=== PATIENT | male | born 1940 | race Caucasian/White ===

== ENCOUNTER → 2016-08-08 | Outpatient (CLI) | payer MEDICARE, BC ==
[~2016-08-08] MED LIST: ADVAIR 250-501 EACH INH; ALPHAGAN 05 ML/1 BOT OPHTH; ASPIRIN EC81 MG PO; BROVANA15 MCG/2 M NS; CARVEDILOL25 MG PO; COLACE100 MG PO; DUONEB INH; FLOMAX0.4 MG PO; FLORASTOR250 MG PO; LEVAQUIN500 MG PO; LIPITOR80 MG PO; NITROSTAT0.4 MG SL; NORCO 5-325 TA1 EACH PO; TAB-A-VITE1 EACH PO; VANCO 1.751.75 GM/25 IV; VANCOMYCIN HCL1 GM IV; XALATAN2.5 ML OPHTH; ZESTRIL40 MG PO
[2016-08-08 15:34] LABS: ESTIMATED GFR (MDRD EQUATION) > 60
== END | disposition disaster alternative care site (69) ==
LOC: LNHI 14:53
PROVIDERS: Surgery Vascular Surgery
DX: I70.219 Atherosclerosis of native arteries of extremities with intermittent claudication, unspecified extremity (principal)

== ENCOUNTER 2016-08-16 07:39 | Outpatient (CLI) | payer MEDICARE, BC ==
[~2016-08-16] VITALS: Ht 172.7 cm; Wt 97.0 kg
--- NOTE | ~2016-08-16 | OR ---
PATIENT'S NAME: NATO CAMARA [facility] AGE: 75 Y [address] ROOM: [place] [address] LOCATION: GPCU ADMIT DATE: 08/16/2016 OR/Procedure Report DISCHARGE DATE: FAMILY PHYSICIAN: Kuldip Pradhan MD ATTENDING PHYSICIAN: MAREK DE LEÓN SURGEON: Marek De León MD COLLECTIONS CURATOR: DATE OF PROCEDURE: 08/16/2016 PREOPERATIVE DIAGNOSIS: Critical limb ischemia of the left lower extremity. POSTOPERATIVE DIAGNOSIS: Critical limb ischemia of the left lower extremity. PROCEDURES PERFORMED: 1. Aortogram. 2. Left lower extremity angiogram. 3. Left common and external iliac stenting with 7 x 57 and a 7 x 37 iliac stent, balloon expandable. FILING OR REGISTRY CLERK: Desire Michael MD. ANESTHESIA: MAC, local. ESTIMATED BLOOD LOSS: 25 mL. OPERATIVE FINDINGS: Recanalization of the left common external iliac, high- grade stenosis at the takeoff of the profunda occlusion of the SFA, and very minimal reconstitution in the distal leg. DESCRIPTION OF PROCEDURE: The patient was brought to Basting Machine Operator, placed supine on the agricultural labor camp manager table, and prepped and draped in a sterile manner. A preoperative time-out was performed. The patient received preoperative antibiotics. We gained access via the left groin. The patient had a femoral- popliteal bypass in the right groin. We used ultrasound guidance after infiltration of 1% lidocaine in the skin using a micropuncture needle followed by a micropuncture sheath. We exchanged using a Seldinger technique for a 5- Greek short sheath and ultimately a 6-Greek sheath to deploy the stents. We went up in the aorta using an 0.035 Glidewire as well as Omni Flush catheter. We performed the aortogram, which showed a high-grade stenosis of the common and the external iliacs. We then performed the angiogram through the sheath, showing that the SFA was completely occluded and the profunda was patent, but had a high-grade heavily calcified stenosis at the origin. The distal runoff was extremely poor with heavily calcified vessels. We gave 5000 units of heparin. We traversed the common and external iliac. We balloon angioplastied first by a 6 x 40 balloon, and then we deployed one 7 x 57 stent PATIENT'S NAME: [facility] AGE: 75 Y [address] ROOM: [place] [address] LOCATION: GPCU ADMIT DATE: 08/16/2016 OR/Procedure Report DISCHARGE DATE: FAMILY PHYSICIAN: Kuldip Pradhan MD ATTENDING PHYSICIAN: MAREK DE LEÓN and one 7 x 37 stent to relieve this high-grade stenoses in the iliacs. The patient will require a femoral endarterectomy to improve blood flow to his leg. He is not a candidate for bypass. Sheath was removed. Pressure was held. Protamine was used to reverse the heparin. DISPOSITION: The patient tolerated the procedure well, and was transferred to the Recovery Room and home later that day. MAREK DE LENÓ MD FKM/modl /[id number] d: 08/16/162054 t: 08/17/16 1630, OPERATIVE SUMMARY
== END 2016-08-16 17:30 | disposition disaster alternative care site (69) ==
LOC: GPCU 07:39 → GCAT 07:39 → GPOC 08:00 → GCAT 17:30
PROC: 047D34Z Dilation of Left Common Iliac Artery with Drug-eluting Intraluminal Device, Percutaneous Approach (ICD-10-PCS; principal; 2016-08-16)
PROC: B41G1ZZ Fluoroscopy of Left Lower Extremity Arteries using Low Osmolar Contrast (ICD-10-PCS; principal; 2016-08-16)
PROC: 047J34Z Dilation of Left External Iliac Artery with Drug-eluting Intraluminal Device, Percutaneous Approach (ICD-10-PCS; principal; 2016-08-16)
PROC: B4101ZZ Fluoroscopy of Abdominal Aorta using Low Osmolar Contrast (ICD-10-PCS; principal; 2016-08-16)
DX: I70.228 Atherosclerosis of native arteries of extremities with rest pain, other extremity (principal); Z95.1 Presence of aortocoronary bypass graft; E78.5 Hyperlipidemia, unspecified; I10 Essential (primary) hypertension; J44.9 Chronic obstructive pulmonary disease, unspecified; Z87.891 Personal history of nicotine dependence
CPT/HCPCS: C1725; C1769; C1876; C1887; J0360; J1644; J2001; J2250; J2720; J3010; J3370; J7030

== ENCOUNTER 2016-09-12 15:00 | Inpatient (IN) | payer MEDICARE, BC ==
[~2016-09-12] VITALS: Ht 172.7 cm; Wt 97.6 kg
--- NOTE | ~2016-09-12 | CON ---
PATIENT'S NAME: NATO REDMOND [facility] AGE: 75 Y [address] ROOM: [place] [address] LOCATION: GPCU ADMIT DATE: 09/15/2016 Consultation DISCHARGE DATE: FAMILY PHYSICIAN: Kuldip Pradhan MD ATTENDING PHYSICIAN: PATSY DE LEÓN REFERRING PHYSICIAN: Keith Clayton MD REFERRING PHYSICIAN: Dr. De León. REASON FOR CONSULT: Chest pain. HISTORY OF PRESENT ILLNESS: Mr. Redmond is a pleasant 75-year-old, white male, with long-standing history of peripheral arterial disease and coronary artery disease who was admitted to [facility] following left femoral endarterectomy attempt. Today morning, while eating breakfast, the patient developed severe substernal chest pain, about 8-9/10 in intensity. Pain was persistent for over an hour. The pain was relieved following GI cocktail and morphine injection. Presently, he is pain free. He denied any increase in shortness of breath. He has poor functional capacity and according to his , he does not walk much, as he is afraid that he might fall. Also has history of leg claudication with walking very short distances. He has past medical history of coronary artery disease and he had one-vessel coronary artery bypass graft several years ago and subsequently had PCI. REVIEW OF SYSTEMS: The patient denied any recent change in vision. No history of nausea, vomiting, diarrhea, or constipation. No history of fever. History of chest pain. History of, off and on shortness of breath is present. History of bilateral leg claudication. Review of other systems was essentially negative. PAST MEDICAL HISTORY: Coronary artery disease, peripheral vascular disease, history of hypertension, and renal artery stenosis status post renal artery stenting. The patient is also status post aortic valve replacement. History of cervical spinal stenosis, COPD, BPH, hyperlipidemia, CKD stage 3. MEDICATIONS: Current cardiac medications include: 1. Aspirin 81 mg daily. 2. Atorvastatin 80 mg daily. 3. Coreg 25 mg b.i.d. 4. Lisinopril 20 mg daily. 5. Nitroglycerin p.r.n. PATIENT'S NAME: NATO [facility]MON[facility] AGE: 75 Y [address] ROOM: [place] [address] LOCATION: GPCU ADMIT DATE: 09/15/2016 Consultation DISCHARGE DATE: FAMILY PHYSICIAN: Kuldip Pradhan MD ATTENDING PHYSICIAN: PATSY DE LEÓN FAMILY HISTORY: The patient stated both his parents had coronary artery disease. SOCIAL HISTORY: The patient is and lives with his in [place]. He quit smoking about 30 years ago. PHYSICAL EXAMINATION: GENERAL: He is awake, alert, and oriented. VITAL SIGNS: His pulse rate is 73 beats per minute, blood pressure 148/65, respiratory rate is 18. HEENT: His head is atraumatic and normocephalic. Oral mucosa is moist. NECK: No significant jugular venous distention is present. CARDIOVASCULAR: Scar britt from previous coronary artery bypass graft surgery is present. S1- S2 are audible. They are regular in rate and rhythm. Grade 2/6 ejection systolic murmur is audible in the left parasternal area. RESPIRATORY: Bilateral vesicular breath sounds are audible. ABDOMEN: Soft. Mild epigastric tenderness is present. Bowel sounds are present. EXTREMITIES: The patient has wound dressing on the left femoral area. Trace right lower extremity edema is present. NEUROLOGIC: The patient is awake, alert, and oriented. SKIN: Warm and dry. LABORATORY DATA: Sodium 137, potassium 4.8, chloride 101, CO2 31, glucose 132, calcium 7.8, BUN 10, creatinine 0.9. Troponin I is less than 0.04. CK-MB 9.4. CPK 953. White blood cell count 8.8, hemoglobin 14.3 on August 16, hematocrit 42.7, platelet count 201. His CBC results from today are pending. His EKG showed left bundle-branch block pattern. ASSESSMENT AND PLAN: 1. Chest pain. The patient had chest pain which lasted for over an hour and subsequently was subsided following GI cocktail and morphine. Presently, he is chest pain-free. His EKG showed left bundle-branch block, which is old according to the records. We will check serial cardiac isoenzymes and EKGs. We will monitor for recurrence of pain. Continue medical therapy for coronary artery disease with aspirin, beta-blockers, and statins. 2. Coronary artery disease, status post coronary artery bypass graft and percutaneous coronary intervention. We will continue medical therapy for coronary artery disease. 3. Hypertension, well controlled. Continue lisinopril and carvedilol. 4. Peripheral vascular disease, status post attempted surgery for left femoral stenosis, management per Vascular Surgery. PATIENT'S NAME: NATO REDMOND [facility] AGE: 75 Y [address] ROOM: [id number] [place] [id number] [facility] ADMIT DATE: 09/15/2016 Consultation DISCHARGE DATE: FAMILY PHYSICIAN: Kuldip Pradhan MD ATTENDING PHYSICIAN: PATSY DE LEÓN 5. Chronic obstructive pulmonary disease management per hospitalist. 6. The plan of care was discussed with the patient and the treating medical team. We will also obtain 2D echocardiogram to evaluate left ventricular function. Thank you for allowing us in taking part in the care of this pleasant patient. MD DAVID PEREZ/daniela /[id number] d: 09/16/16 1327 t: 09/23/16 1614, CONSULTATION REPORT
--- NOTE | ~2016-09-12 | OR ---
PATIENT'S NAME: NATO CAMARA [facility] AGE: 75 Y [address] ROOM: [address] [address] LOCATION: GPCU ADMIT DATE: 09/15/2016 OR/Procedure Report DISCHARGE DATE: FAMILY PHYSICIAN: Kuldip Pradhan MD ATTENDING PHYSICIAN: MAREK GALVAN SURGEON: Marek Galvan MD NET FRONT END DEVELOPER: DATE OF PROCEDURE: 09/15/2016 PREOPERATIVE DIAGNOSIS: Severe claudication of the left lower extremity caused by common femoral artery and high-grade stenosis. POSTOPERATIVE DIAGNOSIS: Severe claudication of the left lower extremity caused by common femoral artery and high-grade stenosis. PROCEDURE: Attempted left common femoral artery endarterectomy, which was only partially performed with repair of fractured artery. SHEAR GRINDER OPERATOR HELPER: JOSUE Hdz. ANESTHESIA: General. ESTIMATED BLOOD LOSS: 650 mL. OPERATIVE FINDINGS: Extremely dense scar tissue from previous surgery and heavily calcified artery which was extremely difficult to clamp, which ended up fracturing in the posterior wall, which required repair and abandonment of attempted endarterectomy. DESCRIPTION OF PROCEDURE: The patient was brought to the operating room, placed supine on the table, prepped and draped in a sterile manner. Preoperative time-out was performed. The patient received preoperative antibiotics. We made a standard incision in the left groin area in a vertical manner, dissected down the fascia, incised the fascia in a longitudinal manner, and dissected out the common femoral artery and the superficial femoral artery. The artery was surrounded with extremely dense hard scar tissue which made dissection extremely difficult. We were unable to completely dissect out the profunda artery due to this dense scar tissue. We gave 5000 units of heparin. We attempted to clamp proximally and distally the artery and then made an arteriotomy. There was heavy bleeding, and we attempted to remove some parts of the plaque; as we did so, we realized that the artery, most inferior and posterior wall, was completely fractured with plaque and was leaking blood posteriorly. We attempted to remove the clamp, but we were unable to do so without heavy bleeding. We then used 5-0 Prolene to repair our arteriotomy primarily and then we were able to then move the PATIENT'S NAME: NATO CAMARA [facility] AGE: 75 Y [address]: [address] [address] LOCATION: [facility] ADMIT DATE: 09/15/2016 OR/Procedure Report DISCHARGE DATE: FAMILY PHYSICIAN: Kuldip Pradhan MD ATTENDING PHYSICIAN: MAREK GALVAN clamp slightly more proximally and then used suction while the artery bled and then repaired the posterior wall with interrupted 6-0 Prolene stitches until we achieved hemostasis. We felt like we would have to get more proximally on the artery and when we attempted to do so, we were at a level of the inguinal ligament and the tissue in this area was extremely dense and extremely hard and we could not differentiate normal tissue. We attempted to dissect and every time we dissected, we would run into heavy bleeding. We made a decision at this point to not to attempt to get any more proximally and not to attempt to do anymore further endarterectomy. We reversed the heparin with protamine. Deep layers were closed with 2-0 and 3-0 Vicryl. Skin was closed with running 4-0 Monocryl, and Prevena patch was placed on top. The patient tolerated the procedure well and transferred to the recovery room and up to the floor. MAREK GALVAN MD FKM/modl /[id number] d: 09/16/16 0021 t: 09/19/16 1812, OPERATIVE SUMMARY
--- NOTE | ~2016-09-12 | ECHO ---
Transthoracic Echocardiography Report (TTE) Demographics Patient Name NATO CAMARA Date of Study 09/16/2016 Patient Number [id number] Visit Number [id number] Date of 1940 Room Number G6321 Gender Male Number Age 75 year(s) Referring Sarthak Jara MD Department Of Sociology Chair Yajaira Anderson [facility], Physician Chiquis Gallardo Physician Interpreting Chiquis Gallardo Yard Inspector Physician Supervising Ordering Chiquis Gallardo MD/RAINER Physician Nurse Stress Chiropract[facility] Conclusions Summary Technically difficult study with suboptimal images Moderate to severe concentric left ventricular hypertrophy. The estimated left ventricular ejection fraction is 55-60%. Septal wall motion abnormality consistent with post operative status. Diastolic assessment reveals Grade I diastolic dysfunction. The left atrium is mildly dilated. The interatrial septum appears aneurysmal. Bioprosthetic aortic valve with peak gradient across aortic valve of 46 mm hg and mean gradient of 25 mm hg. Trivial aortic insufficiency. Procedure Type of Study TTE procedure:2D Echocardiogram. Procedure Date Date: 09/16/2016 Start: 11:03 AM Study Location: Inpatient Portable Technical Quality: Poor visualization due to new item. Indications:Chest pain. Additional Indications:CAD HTN Appropriate Use Criteria: 9 Patient Status: Routine Rhythm: Within normal limits HR: 56 bpm BP: 122/57 mmHg Allergies - Penicillin. - Antibiotics:(Amoxicillin). M-Mode/2D Measurements LV Diastolic Dimension: 3.9 cm LV Systolic Dimension: 2.33 cm LV Septum Diastolic: 1.77 cm LV Septum Systolic: 2.73 cm LV PW Diastolic: 1.61 cm AO Root Dimension: 1.6 cm Cardiac Output: 6.3 l/min LA Dimension: 3.5 cm Post Pericard Effusion: 0.3 cm LVOT: 2.1 cm IVC Inspiration: 0.73 cm LVOT VTI: 32.5 cm RV Base: 2.89 cm LV Stroke volume: 112.51 ml RV Length: 5.91 cm TAPSE: 1.65 cm TDI-S': 10 cm/s Doppler Measurements AV Peak Velocity: 3.52 m/s MV Peak E-Wave: 0.85 m/s AV Peak Gradient: 49.56 mmHg MV Peak A-Wave: 0.95 m/s AV Mean Gradient: 22 mmHg MV E/A Ratio: 0.89 LVOT Peak Velocity: 1.16 m/s MV P1/2t: 91 msec TR Gradient:31.81 mmHg PV Peak Velocity: 1 m/s Estimated RAP:3 mmHg PV Peak Gradient: 4 mmHg Estimated RVSP: 35 mmHg Estimated PASP: 34.81 mmHg E' Septal Velocity: 0.06 m/s A' Septal Velocity: 0.09 m/s E' Lateral Velocity: 0.09 m/s A' Lateral Velocity: 0.1 m/s MV E/E' Ratio: 6.7 Findings Left Ventricle Moderate to severe concentric left ventricular hypertrophy. Diastolic assessment reveals Grade I diastolic dysfunction. Right Ventricle Right ventricular function appears mildly reduced. Left Atrium The left atrium is mildly dilated. The interatrial septum appears aneurysmal. Echodensity noted on interatrial septum possibly due to lipomatous hypertrophy of interatrial septum. Right Atrium Normal right atrial size. Mitral Valve Mild mitral annular calcification. Aortic Valve Bioprosthetic aortic valve with peak gradient across aortic valve of 46 mm hg and mean gradient of 25 mm hg. Trivial aortic insufficiency. Tricuspid Valve Trivial tricuspid regurgitation by color Doppler. Pulmonic Valve Pulmonic valve is not well seen. Miscellaneous Visualized portions of the aortic root and ascending aorta appear normal in size. Pleural Effusion No evidence of pleural effusion. Signature dtt: ROSY YIN dtd: 09/16/16 1103 Physician Self Edit
--- NOTE | ~2016-09-12 | CON ---
PATIENT'S NAME: NATO CAMARA [facility] AGE: 75 Y [address] ROOM: [place] [address] LOCATION: GPCU ADMIT DATE: 09/15/2016 Consultation DISCHARGE DATE: FAMILY PHYSICIAN: Kuldip Pradhan MD ATTENDING PHYSICIAN: PATSY DE LEÓN DATE OF CONSULTATION: 09/15/2016 REFERRING PHYSICIAN: Yesi El MD CHIEF COMPLAINT: Medical management in the setting of left femoral endarterectomy attempt. HISTORY OF PRESENTING ILLNESS: This 75-year-old white male, with a longstanding history of peripheral arterial disease, was admitted to [facility] today by Dr. De León for planned left femoral endarterectomy. Previously, he had undergone left femoral artery stenting with partial relief from claudication. He was not felt to be a candidate for femoral-popliteal bypass on the left side and, therefore, was recommended to proceed with left femoral endarterectomy. This was attempted earlier today, but unsuccessfully. The operative report is still pending. Postoperatively, he has returned to the floor and "feels okay." He does complain of a little bit of pain in the leg, but unchanged from previous. He had previously undergone femoral- popliteal bypass on the right with good results. He denies fever, chills, or sweats. He denies headache, dizziness, or lightheadedness. No chest pain, shortness of breath, or abdominal pain. He has been eating and drinking normally as of late. Denies changes in bowel or bladder habit. No numbness or tingling in his extremities or any other associated physical or constitutional complaints. He ambulates with the assistance of a walker. He typically can go 20 to 30 feet without assistance. He does experience claudication in the leg which improves with rest. PAST MEDICAL HISTORY: ALLERGIES: AMOXICILLIN. ILLNESSES: 1. Coronary artery disease, status post coronary artery bypass grafting. 2. Aortic valve replacement, bioprosthetic. 3. Essential hypertension. PATIENT'S NAME: NATO CAMARA [facility] AGE: 75 Y [address] ROOM: [place] [address] LOCATION: GPCU ADMIT DATE: 09/15/2016 Consultation DISCHARGE DATE: FAMILY PHYSICIAN: Kuldip Pradhan MD ATTENDING PHYSICIAN: PATSY DE LEÓN 4. Hyperlipidemia. 5. Peripheral arterial disease. 6. Chronic kidney disease, stage 3. 7. Renal artery stenosis. 8. Cervical spinal stenosis. 9. Chronic hypoxic and hypercapnic respiratory failure with COPD. 10. BPH, status post TURP. CURRENT MEDICATIONS: 1. Alphagan ophthalmic drops 0.1% applied topically t.i.d. p.r.n. 2. Aspirin 81 mg p.o. daily. 3. Atorvastatin 80 mg p.o. daily. 4. Coreg 25 mg p.o. b.i.d. 5. Latanoprost ophthalmic drops one drop each eye daily. 6. Lisinopril 20 mg p.o. daily. 7. Multivitamin daily. 8. Nitroglycerin p.r.n. FAMILY HISTORY: Significant for stroke in his mother. SOCIAL HISTORY: He is and lives in [place]. He is retired. He has a 30- to 40-pack- year history of smoking tobacco, but has been quit for 10 years. No significant alcohol use. REVIEW OF SYSTEMS: As per HPI. All other organ systems reviewed and are negative. PHYSICAL EXAMINATION: VITAL SIGNS: Temperature 97.9, pulse 80, respirations 16, and blood pressure 98/50. Weight is 96.2 kg. GENERAL: He is very pleasant, cooperative, lying in the bed, in no acute distress. He is a little hard of hearing. He is oriented x2 (not oriented to date). SKIN: Supple, pink, warm, and dry. There is some hyperpigmentation about the lower extremities bilaterally. No skin rashes. No areas of skin breach. No ulcerations. HEENT: Otherwise, normocephalic. Sclerae are nonicteric. Pupils equal, round, and reactive to light and accommodation. Extraocular movements appear intact. Nasal turbinates normal in appearance. Oropharynx clear. Mucous membranes are pink and moist. NECK: Supple, plethoric, and obese. No masses or adenopathy. No thyromegaly. No JVD. CHEST: Chest wall is symmetrical. PATIENT'S NAME: NATO CAMARA [facility] AGE: 75 Y [address] ROOM: [place] [address] LOCATION: GPCU ADMIT DATE: 09/15/2016 Consultation DISCHARGE DATE: FAMILY PHYSICIAN: Kuldip Pradhan MD ATTENDING PHYSICIAN: PATSY DE LEÓN HEART: Regular with occasional extrasystoles. There is a grade 1 to 2 out of 6 systolic ejection murmur. LUNGS: Diminished at the bases. No crackles or wheezes are heard. ABDOMEN: Soft and obese. Nontender. Bowel sounds present. No masses or hepatosplenomegaly. GENITOURINARY AND RECTAL: Not done. EXTREMITIES: No clubbing, cyanosis, or edema. NEUROLOGICAL: No focal deficits. LABORATORY AND X-RAY DATA: CBC showed a white blood cell count of 8.8, hemoglobin is 14.3, hematocrit 42.7, and platelets 201. Chemistries revealed a BUN and creatinine of 8 and 0.9 respectively, sodium and potassium of 136 and 4.4, chloride and CO2 are 100 and 31 respectively, calcium is 8.5. AST and ALT 15 and 18. Bilirubin 0.6. ASSESSMENT AND PLAN: 1. Coronary artery disease, clinically asymptomatic and stable. We will continue aspirin and statin therapy. He is also on beta billie therapy. Plan continued clinical followup. 2. Essential hypertension, appears to be adequately controlled. Continue LIU inhibitor therapy and monitor. 3. Peripheral arterial disease with failed attempt at left femoral endarterectomy. Symptoms appear stable. He is not experiencing rest claudication. We will defer definitive management to Dr. De León. Plan to continue with medical management. 4. Gait instability, chronic. Urge strict fall precautions. Ambulate only with a walker. He might benefit from some outpatient physical therapy. 5. Aortic valve replacement, bioprosthetic. Compensated, clinically stable. No changes. 6. Chronic hypoxic and hypercapnic respiratory failure. He is currently on a little oxygen, but this can probably be weaned off. He appears to be clinically stable. Encourage good pulmonary hygiene. 7. Renal artery stenosis. Renal function appears preserved. We will follow clinically. 8. Deep venous thrombosis prophylaxis. Encourage mobilization as he is physically able. Low-dose Lovenox per the venous thromboembolism protocol. YESI EL MD AJBritany/noemyl PATIENT'S NAME: NATO CAMARA [facility] AGE: 75 Y [address] ROOM: [place] [address] [facility] AD[facility] DATE: 09/15/2016 Consultation DISCHARGE DATE: FAMILY PHYSICIAN: Kuldip Pradhan MD ATTENDING PHYSICIAN: PATSY DE LEÓN /[id number] d: 09/15/16 1757 t: 09/16/16 0931, CONSULTATION REPORT
--- NOTE | ~2016-09-12 | DS ---
PATIENT'S NAME: NATO CAMARA [facility] AGE: 75 Y [address] ROOM: [id number] [place] [address] LOCATION: GPCU ADMIT DATE: 09/15/2016 Discharge Summary DISCHARGE DATE: 09/17/2016 FAMILY PHYSICIAN: Kuldip Pradhan MD ATTENDING PHYSICIAN: Marek De León FINAL DIAGNOSIS: Peripheral vascular disease with claudication. SECONDARY DIAGNOSES: 1. Chest pain. 2. Coronary artery disease. 3. Hypertension, controlled. 4. Chronic obstructive pulmonary disease. 5. Renal artery stenosis. 6. Urinary retention. PROCEDURE: Attempted left common femoral artery endarterectomy with primary repair of artery by Dr. De León. CONSULTATIONS: 1. Hospitalist for medical management. 2. Dr. Sim with Cardiology for chest pain. HOSPITAL COURSE: This is a 75-year-old male, admitted to [facility] on 09/15/2016 after attempted left common femoral artery endarterectomy. The patient with history of severe left lower extremity claudication caused by high grade stenosis to the left common femoral artery. See history and physical for full patient details. The patient was found to have dense scar tissue from previous surgery and heavily calcified artery which was difficult to clamp. There ended up being a fracture of the posterior wall of the artery which required repair and abandonment of attempted endarterectomy. There was an estimated 650 mL blood loss. The patient overall tolerated the procedure well and after recovery was admitted to progressive care unit for monitoring on telemetry, vitals, labs, surgical site, pain management, medication administration, and nursing assistance. The patient was placed on bedrest for 12 hours and his diet was advanced as tolerated. He was continued on Ancef x24 hours. The patient had no events on postop day 0. The morning of postop day #1, the patient had sharp substernal chest pain after eating breakfast, rating an 8/10. At that time, he denied any nausea, vomiting, shortness of breath, or radiation of pain. Cardiac enzymes were drawn and EKG obtained with old left bundle-branch block. The patient received sublingual nitroglycerin with no decrease in chest pain. His systolic blood pressures were elevated, 150s to 170s at that time. Hypertension decreased after nitroglycerin to systolic blood pressures of 130s. His chest pain did finally resolve after a dose of GI cocktail and PATIENT'S NAME: NATO CAMARA [facility] AGE: 75 Y [address] ROOM: [id number] [place], [place] [address] LOCATION: GPCU ADMIT DATE: 09/15/2016 Discharge Summary DISCHARGE DATE: 09/17/2016 FAMILY PHYSICIAN: Kuldip Pradhan MD ATTENDING PHYSICIAN: Marek De León. Cardiology was consulted due to the patient's history of coronary artery disease and history of CABG. Cardiology obtained a 2D echo and cardiac enzymes two sets were ordered every 4 hours. The patient had postoperative urinary retention requiring Trujillo catheter insertion, the patient with a known history of BPH. On postop day #1, his posterior tibialis and dorsalis pedis were present on Doppler. His Prevena VAC was intact to left groin with no surrounding erythema. On postop day #2, the patient's chest pain remained resolved. He was given a dose of Flomax x1, and Trujillo catheter was removed without difficulty and voiding well. His left groin pain was controlled and distal pulses remained present on Doppler. His troponin stayed less than 0.04 x3 sets. He had elevated CPK levels as expected due to recent surgery. Echo was reviewed by Cardiology. Cardiology recommended that the patient continue with medication therapy including aspirin, beta-billie, statin, and ARB. The patient is to follow up with Dr. Lemus as an outpatient. Hospitalist recommended that the patient followup with pulmonary function tests as an outpatient as well. From a Vascular, Cardiology, and Medical stand point, the patient was found in a stable condition to be discharged home. LABORATORY DATA: White blood cell count trending 8.8, 15.3, 10.4; hemoglobin 14.3, 12.0, 11.6. CPK 953, 893, 808. Troponin less than 0.04. DISCHARGE ORDERS: The patient is to be discharged to home on a cardiac diet. He is to avoid heavy lifting for 2 weeks. He is to follow up with Natividad Cedeno APRN in 2 weeks. He is to follow up with his primary care provider in 2-3 days for removal of Prevena VAC on left groin. He is also to have pulmonary function tests completed with his primary care provider. He is to report any signs or symptoms of infection at surgical incision including redness, swelling, fevers, chills, or drainage. DISCHARGE MEDICATIONS: 1. Lipitor 80 mg p.o. every night at bedtime. 2. Carvedilol 12.5 mg p.o. daily. 3. Xalatan drops, one drop ophthalmic every night at bedtime. 4. Lisinopril 20 mg p.o. daily. 5. Aspirin 81 mg p.o. daily. 6. Brimonidine tartrate one drop ophthalmic twice daily. 7. Multivitamin 1 tablet p.o. daily. 8. Nitroglycerin 0.5 mg sublingual every 5 minutes as needed for chest pain. 9. Plato 5/325 1 to 2 tabs every 4 hours as needed for pain. 10. Advair 250/50 Diskus one puff inhaled daily. 11. Brovana one ampule nasally twice daily as needed. DISPOSITION: The patient is to be discharged home in a stable condition. He is to follow discharge orders as prescribed. Education about discharge including incisional care, medications, prescriptions, diet, activity, and PATIENT'S NAME: NATO CAMARA [facility] AGE: 75 Y [address] ROOM: [place] [address] LOCATION: GPCU ADMIT DATE: 09/15/2016 Discharge Summary DISCHARGE DATE: 09/17/2016 FAMILY PHYSICIAN: Kuldip Pradhan MD ATTENDING PHYSICIAN: Marek De León followup appointments given to the patient. The patient verbalized understanding of the plan and had no further questions or concerns. He is to follow discharge orders as prescribed. NATIVIDAD CEDENO APRN FOR MAREK DE LEÓN MD TO/modl /[id number] d: 09/22/16 1746 t: 09/28/16 1007, DISCHARGE SUMMARY
[2016-09-15 06:38] LABS: BASOPHIL # 0.1 K/uL (0.0-0.2); BASOPHIL % 0.7 %; EOSINOPHIL # 0.2 K/uL (0.0-0.5); EOSINOPHIL % 2.6 %; HEMATOCRIT 42.7 % (37.0-53.0); HEMOGLOBIN 14.3 g/dL (11.0-16.0); IMMATURE GRANULOCYTE % 0.2 %; LYMPHOCYTE # 1.3 K/uL (0.8-4.0); LYMPHOCYTE % 14.9 %; MCH 32.1 pg (27.0-34.0); MCHC 33.5 gm/dL (32.0-36.5); MCV 95.7 fl (83.0-98.0); MONOCYTE % 11.1 %; MPV 9.4 fl (9.4-12.4); NEUTROPHIL # (ANC) 6.2 K/uL (1.4-9.0); NEUTROPHIL % 70.5 %; NRBC % 0 /100WBC (0-0.00); PLATELET COUNT 201 K/uL (150-450); RBC 4.46 M/uL (3.50-5.50); WBC 8.8 K/uL (4.0-11.0)
[2016-09-15 06:58] LABS: ALBUMIN 3.4 gm/dL (3.5-5.0); ANION GAP 9.4 (10.0-19.0); CALCIUM 8.5 mg/dL (8.5-10.5); CREATININE 0.9 mg/dL (0.6-1.3); POTASSIUM 4.4 mMol/L (3.7-5.1); TOTAL BILIRUBIN 0.6 mg/dL (0.0-1.5); TOTAL PROTEIN 7.3 g/dL (6.0-8.4)
[2016-09-15 13:17] LABS: ANION GAP 9.8 (10.0-19.0); CALCIUM 7.8 mg/dL (8.5-10.5); CREATININE 0.9 mg/dL (0.6-1.3); POTASSIUM 4.8 mMol/L (3.7-5.1)
--- NOTE | 2016-09-15 18:53 | NUR ---
Significant Event:Patient has wound vac to left groin, has been dry and intact. No c/o pain. Has been taking fluids and eating small amount of food. Hoping to go home tomorrow. Follow up:Home tomorrow
--- NOTE | 2016-09-15 18:55 | NUR ---
D:Patient recieved at 1135 per cart. Is alert and oreintated., Has IV fluids of NS infusing at 75 ml/hr. Wound vac to left groin is intact. Family with patient.Report recieved from Thais at 1110. P:Monitor post op
--- NOTE | 2016-09-16 04:56 | NUR ---
Significant Event: DENIES PAIN ALL NIGHT. HAVING DIFFICULTY EMPTYING HIS BLADDER. BLADDER SCANNED EARLY IN SHIFT AND HE HAD 708ML. HE TRIED TO SIT ON EDGE OF BED. HE WAS ABLE TO VOID 25 AND THEN ANOTHER 100ML. HE HAD NO URGE TO VOID. HE STATES HE USUALLY SITS ON THE TOILET. HE REFUSED TO GO INTO THE BR OR SIT ON THE COMMODE AFTER HIS BEDREST WAS UP. HE WAS AFRAID HE WOULD GO THROUGH ALL THE WORK TO NOT BE ABLE TO VOID. HE HAS REMAINED IN BED ALL NIGHT. HAS NOT SLEPT AT ALL. HE STATES AT HOME HE DRINKS 2 BEERS EVERYNIGHT TO HELP HIM SLEEP. NO OUTPUT FROM L) GROIN WOUND VAC. STILL INTACT. VSS. DECREASED HIM TO 1L PER NC. Follow up:
[2016-09-16 09:22] LABS: CPK 953 IU/L (35-332)
[2016-09-16 11:01] LABS: BASOPHIL % 0.1 %; HEMATOCRIT 36.3 % (37.0-53.0); IMMATURE GRANULOCYTE # 0.1 K/uL (0.0-0.3); IMMATURE GRANULOCYTE % 0.5 %; LYMPHOCYTE # 1.1 K/uL (0.8-4.0); LYMPHOCYTE % 6.9 %; MCH 32.3 pg (27.0-34.0); MCHC 33.1 gm/dL (32.0-36.5); MCV 97.8 fl (83.0-98.0); MONOCYTE # 1.4 K/uL (0.0-1.0); MPV 9.2 fl (9.4-12.4); NEUTROPHIL # (ANC) 12.7 K/uL (1.4-9.0); NEUTROPHIL % 83.5 %; NRBC % 0 /100WBC (0-0.00); PLATELET COUNT 171 K/uL (150-450); RBC 3.71 M/uL (3.50-5.50); RDW-CV 13.1 % (11.9-14.6); WBC 15.3 K/uL (4.0-11.0)
--- NOTE | 2016-09-16 11:50 | NUR ---
Introduced self and role of care management to patient. He lives in [place] with his . He states that he is able to do all his ADL's independently. He states that if he "needs help" his will help. He plans on returning home on discharge. I did ask if he would be needing home health to assist with the wound vac. He stated "no when I go home I will go to Dr Pradhan and he will remove it and throw it away". I did call and speak with Lanie ARROYO to make sure the would vac that was inplace was one of the disposable kinds but she could not tell me. He plans on returning home on discharge. He denies any needs at this time. Will continue to follow.
[2016-09-16 13:26] LABS: CPK 893 IU/L (35-332)
--- NOTE | 2016-09-16 15:17 | NUR ---
Significant Event: pt had chest pain midchest this am after breakfast. Trop.negative but cpk/mb are up.,ekg ok. Ntg sl no relief, morphine helped and gi cocktail. Wound vac intact. Pt had 700+ml on bladder scan, mota inserted, after pt voided 400mls clear yellow. Echo done. Pt needs to get sleep. Up to recliner once today tolerated ok. Pt here with him. SBP 170s this am, but back down 110s this afternoon. Pt not eat/drink much. Follow up:
[2016-09-16 17:13] LABS: CPK 808 IU/L (35-332)
--- NOTE | 2016-09-17 04:16 | NUR ---
Significant Event: PATIENT IS ALERT AND ORIENTED. VSS.NO COMPLAINTS OF CP OR DISCOMFORT. REMAINTS ON 1L O2 WHICH HE FAILED AT WEANING OFF OF LAST NIGHT. CARMICHAEL TO ELIAS. Follow up: PATIENT WISHES TO GO HOME TODAY.
[2016-09-17 04:57] LABS: BASOPHIL # 0.1 K/uL (0.0-0.2); BASOPHIL % 0.5 %; EOSINOPHIL # 0.1 K/uL (0.0-0.5); EOSINOPHIL % 1.3 %; HEMATOCRIT 34.9 % (37.0-53.0); HEMOGLOBIN 11.6 g/dL (11.0-16.0); IMMATURE GRANULOCYTE % 0.4 %; LYMPHOCYTE # 1.5 K/uL (0.8-4.0); LYMPHOCYTE % 14.5 %; MCH 32.3 pg (27.0-34.0); MCHC 33.2 gm/dL (32.0-36.5); MCV 97.2 fl (83.0-98.0); MONOCYTE # 1.1 K/uL (0.0-1.0); MONOCYTE % 10.8 %; MPV 9.3 fl (9.4-12.4); NEUTROPHIL # (ANC) 7.5 K/uL (1.4-9.0); NEUTROPHIL % 72.5 %; NRBC % 0 /100WBC (0-0.00); PLATELET COUNT 163 K/uL (150-450); RBC 3.59 M/uL (3.50-5.50); RDW-CV 13.1 % (11.9-14.6); WBC 10.4 K/uL (4.0-11.0)
[2016-09-17 05:09] LABS: ANION GAP 10.2 (10.0-19.0); CALCIUM 7.9 mg/dL (8.5-10.5); CREATININE 0.9 mg/dL (0.6-1.3); POTASSIUM 4.2 mMol/L (3.7-5.1)
[2016-09-17] MEDS ORDERED: ALPHAGAN 05 ML/1 BOT OPHTH (14:53)
[2016-09-17] MEDS ORDERED: ZESTRIL40 MG PO (14:53)
[2016-09-17] MEDS ORDERED: CARVEDILOL25 MG PO (14:53)
[2016-09-17] MEDS ORDERED: TAB-A-VITE1 EACH PO (14:53)
[2016-09-17] MEDS ORDERED: XALATAN2.5 ML OPHTH (14:53)
[2016-09-17] MEDS ORDERED: LIPITOR80 MG PO (14:53)
[2016-09-17] MEDS ORDERED: ASPIRIN EC81 MG PO (14:53)
--- NOTE | 2016-09-19 10:23 | NUR ---
I got a call on Monday the md wanting home health. I did talk with Vivi ARROYO with [facility] and they will touch base with pt on Monday. I did have [facility] u/s fax dc orders and meds and face to face. I then spoke with Katalina this am and faxed additional information. She is planning on calling pt to set up a time.
== END 2016-09-17 15:00 | disposition disaster alternative care site (69) | DRG 253 ==
LOC: GPCU 09-15 05:28
PROVIDERS: Family Medicine; Hospitalist; Internal Medicine Interventional Cardiology; Nurse Practitioner Family; ADMIT Surgery Vascular Surgery
PROC: 04UL0JZ Supplement Left Femoral Artery with Synthetic Substitute, Open Approach (ICD-10-PCS; principal; 2016-09-15)
PROC: 04CL0ZZ Extirpation of Matter from Left Femoral Artery, Open Approach (ICD-10-PCS; principal; 2016-09-15)
DX: I73.9 Peripheral vascular disease, unspecified (principal); J96.11 Chronic respiratory failure with hypoxia; J44.9 Chronic obstructive pulmonary disease, unspecified; E78.5 Hyperlipidemia, unspecified; I12.9 Hypertensive chronic kidney disease with stage 1 through stage 4 chronic kidney disease, or unspecified chronic kidney disease; N18.3 Chronic kidney disease, stage 3 (moderate); Z87.891 Personal history of nicotine dependence; I25.10 Atherosclerotic heart disease of native coronary artery without angina pectoris; I70.1 Atherosclerosis of renal artery; N40.0 Benign prostatic hyperplasia without lower urinary tract symptoms; Z86.79 Personal history of other diseases of the circulatory system; Z95.2 Presence of prosthetic heart valve
CPT/HCPCS: C2628; J0690; J1100; J1644; J1650; J2001; J2270; J2405; J2720; J7030

== ENCOUNTER 2016-10-09 10:14 | Inpatient (IN) | payer MEDICARE, BC ==
[~2016-10-09] VITALS: Ht 172.7 cm; Wt 98.0 kg
--- NOTE | ~2016-10-09 | CON ---
[facility] 75 Y [address] ROOM: [place] [address] LOCATION: GPCU ADMIT DATE: 10/09/2016 Consultation DISCHARGE DATE: FAMILY PHYSICIAN: Kuldip Pradhan MD ATTENDING PHYSICIAN: PATSY DE LEÓN DATE OF CONSULTATION: 10/12/2016 REFERRING PHYSICIAN: Felisha SCOTT MD REASON FOR CONSULTATION: Infection in the left groin postop. HISTORY: Mr. Redmond is a 75-year-old male, who was admitted with redness and swelling in his left groin. He had surgery with Dr. De León back on September 15 for severe claudication with an attempt at a left common femoral artery endarterectomy, but it was only partially performed with repair of a fractured artery. Here, he was felt to have an infected seroma, underwent I and D. There was some hematoma and this was copiously irrigated. I did speak with Dr. De León today and this vessel was exposed. The patient denies having any fevers, chills, sweats, nausea, vomiting, diarrhea. He is feeling better now. ID was asked to see and comment on antibiotics. PAST MEDICAL HISTORY: Significant for coronary disease peripheral vascular disease, hypertension, renal artery stenosis, ascending aortic valve replacement, COPD, BPH, cervical spine stenosis, hyperlipidemia, and chronic renal insufficiency. MEDICATIONS: Meds are noted. He is currently on vancomycin. ALLERGIES: TO PENICILLIN. HE SAYS HIS LIPS SWELLED UP. SOCIAL HISTORY: He is . Lives in [place]. Quit smoking 30 years ago. FAMILY HISTORY: Positive for coronary disease in both parents. REVIEW OF SYSTEMS: All remaining review of systems, otherwise, negative with pertinent positives and negatives in the HPI. PHYSICAL EXAMINATION: PATIENT'S NAME: NATO REDMOND [facility] AGE: 75 Y [address] ROOM: [place] [address] LOCATION: GPCU ADMIT DATE: 10/09/2016 Consultation DISCHARGE DATE: FAMILY PHYSICIAN: Kuldip Pradhan MD ATTENDING PHYSICIAN: PATSY DE LEÓN GENERAL: He is not in any acute distress. Awake, alert, and oriented, sitting up in a chair. HEENT: NC/AT. EOMI. PERRLA. NECK: Supple. LUNGS: Clear. HEART: Regular. ABDOMEN: Soft and nontender. EXTREMITIES: Without cyanosis, clubbing, or edema. His left groin has a VAC in place. There is very mild erythema across his left anterior thigh. VITAL SIGNS: His T-max is 98.4, blood pressure is 136/63, pulse 79, respirations 16. DATA: Cultures from the wound are growing Enterobacter aerogenes and Enterococcus faecalis. He also has cultures which showed an anaerobic gram-positive cocci. Sodium 136, potassium 4.1, chloride 102, bicarb 27, BUN 12, creatinine 1.2, glucose is 103. White count 9.5, hemoglobin 11.7, platelet count 221. ASSESSMENT AND PLAN: Left groin wound infection. Initially, I had not noted that the vessels were involved as the operative note did not explicitly state that. However, after discussion with Dr. De León, the vessels were exposed. Originally, I had thought about a shorter course given that it is just a subcutaneous infected seroma/hematoma. But given the depth down to vessel, we were going to be stuck treating him with probably 4 weeks of antibiotics. He has grown Enterococcus and Enterobacter. With the penicillin allergy, this limits our treatment options to some extent. He has taken cefazolin in the past, so could use a beta-lactam here. Otherwise, he can be on the Levaquin to cover the Enterobacter and then would need vancomycin for Enterococcus. The Enterococcus is sensitive to Levaquin, but this is not an ideal drug, especially if we are worried about treating a possible vascular infection. We will keep him on the vancomycin. We will do daily dosing given his age and aim for a trough around 15-18. He was on b.i.d. dosing post 3-dose level of 18 which is going to accumulate in him, so I think that is too much. Pharmacy can follow going forward and we will keep him on the Levaquin, however, could switch him over to Bactrim. However, with his chronic renal insufficiency, his risk of hyperkalemia would be significant, so may not be the best option here. If he gets into trouble with the Levaquin, could always try doing something like cefepime since he has tolerated cefazolin before. In any case, and he will get a PICC and 4 weeks of antibiotics. I did speak with Dr. De León and the [facility] team today. PATIENT'S NAME: NATO REDMOND [facility] AGE: 75 Y [address] ROOM: [place] [address] LOCATION: [facility] ADMIT DATE: 10/09/2016 Consultation DISCHARGE DATE: FAMILY PHYSICIAN: Kuldip Pradhan MD ATTENDING PHYSICIAN: PATSY DE LEÓN MD NI SILVEIRA/modl /[id number] d: 10/12/161940 t: 10/13/16 1046, CONSULTATION REPORT
--- NOTE | ~2016-10-09 | CON ---
PATIENT'S NAME: NATO CAMARA [facility] AGE: 75 Y [address] ROOM: [place] [address] LOCATION: GPCU ADMIT DATE: 10/09/2016 Consultation DISCHARGE DATE: FAMILY PHYSICIAN: Kuldip Pradhan MD ATTENDING PHYSICIAN: PATSY DE LEÓN DATE OF CONSULTATION: 10/09/2016 REFERRING PHYSICIAN: Felisha SCOTT MD CONSULTATION NOTE CHIEF COMPLAINT: Left groin cellulitis. HISTORY OF PRESENT ILLNESS: The patient is a 75-year-old gentleman with history of CAD status post CABG, aortic valve replacement with bioprosthetic, hypertension, and peripheral vascular disease, who presents here with left groin cellulitis. The patient has a history of peripheral vascular disease with multiple stents and recent attempt of left femoral endarterectomy with fracture of the posterior wall artery. The endarterectomy was postponed and fracture was repaired. The patient on discharge had wound VAC and was [facility]. He was recently started on clindamycin for cellulitis around surgical sites. However, the patient reports that his cellulitis is worsening with increasing erythema. Also including going all the way up to his abdominal wall. The patient was seen in the emergency department, was admitted under Dr. De León for possible surgical evaluation. The patient denies any fever, chills, shortness of breath, abdominal pain, nausea, vomiting, diarrhea, headache, or vision change. Of note, the patient also reports of numbness of his left foot. He reports that this has been going on in the past 24 hours. PAST MEDICAL HISTORY: 1. CAD status post CABG. 2. Aortic valve replacement with bioprosthetic. 3. Hypertension. 4. Obesity. 5. Possible COPD. PAST SURGICAL HISTORY: 1. Cervical surgery. 2. CABG. 3. Left attempted endarterectomy. [facility] 75 Y [address] ROOM: [address] [address] LOCATION: GPCU ADMIT DATE: 10/09/2016 Consultation DISCHARGE DATE: FAMILY PHYSICIAN: Kuldip Pradhan MD ATTENDING PHYSICIAN: PATSY DE LEÓN 4. Multiple lower extremity stents. FAMILY HISTORY: Both parents of old age. SOCIAL HISTORY: Reports he drinks 1 to 2 beers a day. Denies any withdrawal symptoms. Also reports he does not smoke but quit smoking 20 years ago. Lives with family. MEDICATIONS: Currently being reconciled. ALLERGIES: THE PATIENT REPORTS THAT HE HAS ALLERGY TO PENICILLIN WITH SWELLING OF THE ORAL CAVITY AND FACE. REVIEW OF SYSTEMS: All systems have been reviewed and are negative except what I mentioned in the HPI. PHYSICAL EXAMINATION: VITAL SIGNS: Stable. HEENT: Head; normocephalic and atraumatic. Eyes; extraocular muscles intact. Nose; no nasal discharge. Ears; no ear discharge. CHEST: Clear to auscultation bilaterally. HEART: Regular rate and rhythm. Second intercostal grade 1 systolic murmur. ABDOMEN: Soft, nontender, and nondistended. [employer]: The patient is alert and oriented x3. SKIN: The patient has erythema around his left groin extending close to his knee and also to the lower abdominal wall. The patient also has surgical site in groin with granulation. No expressible drainage seen. EXTREMITIES: Dorsalis pedis artery palpated on the right. However, on the left lower extremity not able to palpate the dorsalis pedis artery with palpation, able to palpate with Doppler with faint pulse. LABORATORY DATA: Lactate 1.7. White blood cell count of 9.9, hemoglobin of 12.7, platelets of 266,000. Glucose of 114, BUN of 8, creatinine of 0.9, sodium of 135, and potassium of 4.2. Procalcitonin is less than 0.05. IMAGING DATA: CT of abdomen and pelvis with contrast shows left femoral artery bypass graft PATIENT'S NAME: NATO CAMARA [facility] AGE: 75 Y [address] ROOM: [place] [address] [facility] AD[facility] DATE: 10/09/2016 Consultation DISCHARGE DATE: FAMILY PHYSICIAN: Kuldip Pradhan MD ATTENDING PHYSICIAN: PATSY DE LEÓN is occluded, chronicity uncertain. Fluid collection in the left groin along the graft could be seroma, , hematoma, or abscess. ASSESSMENT AND PLAN: 1. Left groin cellulitis secondary to recent surgical site. The patient was started on vancomycin and Zosyn per primary team. However, the patient has an allergy for penicillin, therefore, we will discontinue penicillin and start the patient on Levaquin. Continue vancomycin. Blood culture is pending. 2. Critical limb ischemia of left lower extremity with the patient presenting with numbness of foot with decreased pulse of the lower extremity artery, and a CT showing left femoral artery bypass graft that is occluded. Primary team to do surgery possibly today. 3. History of coronary artery disease status post coronary artery bypass graft. Continue aspirin and beta-billie, and also statin. 4. Hypertension. Continue home medications. 5. Aortic valve replacement with bioprosthetic. Continue aspirin. 6. Chronic kidney disease, stage 3, stable. 7. Chronic obstructive pulmonary disease. Continue DuoNeb as needed. Greater than 70 minutes were spent on patient's care. Assessment and plan was discussed with the patient and family member. All questions were answered with satisfaction. To follow patient clinically. Possible surgery today. MARTHAWE MD EVERARDO SCOTT/daniela /[id number] d: 10/09/16 1651 t: 10/22/16 1549, CONSULTATION REPORT
--- NOTE | ~2016-10-09 | OR ---
PATIENT'S NAME: NATO CAMARA [facility] AGE: 75 Y [address] ROOM: [place] [address] [facility] AD[facility] DATE: 10/09/2016 OR/Procedure Report DISCHARGE DATE: FAMILY PHYSICIAN: Kuldip Pradhan MD ATTENDING PHYSICIAN: MAREK GALVAN SURGEON: Marek Galvan MD MARRIAGE AND FAMILY THERAPIST: DATE OF PROCEDURE: 10/09/2016 PREOPERATIVE DIAGNOSIS: Infected seroma of the left groin. POSTOPERATIVE DIAGNOSES: Infected seroma of the left groin. PROCEDURE: Incision and drainage of the left groin. ANESTHESIA: General. ESTIMATED BLOOD LOSS: 15 mL. OPERATIVE FINDINGS: Infected seroma drained completely and wound irrigated. CHIEF CRNA: JOSUE Hdz. DESCRIPTION OF PROCEDURE: The patient was brought to the operating room, placed supine on the operating table, placed under general anesthesia, prepped and draped in a sterile manner. Preoperative time-out was performed. The patient received preoperative antibiotics. We made an incision in a vertical manner in the left groin through his previous common femoral endarterectomy site, dissected down the fascia, incised the fascia in a longitudinal manner. There was an evacuation of murky serous fluid, which represented infected seroma. There was some old-appearing hematoma, which was likely also infected. We removed all this tissue, copiously irrigated with a Surgilav irrigation for a total of 1 L. We then packed the wound with Dakin-soaked gauze. The patient tolerated the procedure well and transferred to recovery room and then back up to the floor. MAREK GALVAN MD FKM/modl /[id number] d: 10/09/16 2347 t: 10/15/16 1110, OPERATIVE SUMMARY
--- NOTE | ~2016-10-09 | ER ---
PATIENT'S NAME: NATO REDMOND [facility] AGE: 75 Y [address] ROOM: [place] [address] LOCATION: GPCU ADMIT DATE: 10/09/2016 ER/Outpatient Report DISCHARGE DATE: FAMILY PHYSICIAN: Kuldip Pradhna MD ATTENDING PHYSICIAN: PATSY DE LEÓN CHIEF COMPLAINT: Possible groin infraction. HISTORY OF PRESENT ILLNESS: Mr. Redmond presents for evaluation of unusual rash and groin infection a couple of weeks after he had attempted and aborted femoral endarterectomy related to significant peripheral vascular disease. The rash has been progressing over the last several days. He denies any fevers. He thinks it is more warm than it has been in the past. PAST MEDICAL HISTORY: Documented on the record and reviewed by me. SOCIAL HISTORY: Documented on the record and reviewed by me. MEDICATION: Documented on the record and reviewed by me. ALLERGIES: DOCUMENTED ON THE RECORD AND REVIEWED BY ME. REVIEW OF SYSTEMS: All systems reviewed and negative except as noted in the HPI. PHYSICAL EXAMINATION: VITAL SIGNS: Blood pressure 145/66, pulse is 79, respiratory rate is 22, temperature is 96.7, SpO2 is 95% on room air. Pain is rated at 3/10. GENERAL: Age-appropriate male, recumbent on exam table. No apparent pain or distress. NEUROLOGIC: Awake and alert. GCS appears to be 15 with expected diminished sensation throughout, otherwise, no focal deficits appreciated. HEENT: Normocephalic, atraumatic. Eyes are PERRL. Oropharynx clear. NECK: Supple. Trachea is midline. CHEST/HEART: Regular rate and rhythm with no murmurs. LUNGS: Clear to auscultation bilateral grossly with no rhonchi, wheezes, or rales. ABDOMEN: Soft, nontender, and nondistended. No rebound or guarding. BACK: Normal to inspection and palpation. No CVA or paraspinal tenderness. PATIENT'S NAME: NATO REDMOND [facility] AGE: 75 Y [address] ROOM: [place] [address] LOCATION: GPCU ADMIT DATE: 10/09/2016 ER/Outpatient Report DISCHARGE DATE: FAMILY PHYSICIAN: Kuldip Pradhan MD ATTENDING PHYSICIAN: PATSY DE LEÓN EXTREMITIES: The left groin incision appears to be infected, it has significant malodorous smell to it with significant fibrinous exudates. Otherwise, warm and well perfused. No obvious abnormalities. SKIN: Notable for a fine lace-like rash, most prominent on the left thigh and left flank region which does involve most of the back and across the stomach and down the left lower extremity as well. LABS AND X-RAYS: No imaging was obtained for this patient encounter. Labs: White count is 9.9, hemoglobin 12.7, platelets 266, INR is 1. CMS with no electrolyte abnormalities. Creatinine 0.9, GFR is 82. No appreciable LFT abnormalities. CRP is 0.59, lactate 1.7, procalcitonin is below detectable threshold. EMERGENCY DEPARTMENT COURSE: The patient was seen and evaluated in the ER by myself. He is given a medical screening exam. Care was transitioned rapidly to Natividad Campo APRN for Dr. De León, Vascular Surgery. The patient will be admitted and I will defer antibiotic management to that team. Please see their notes and dictations for further hospital care. MD KELLY LARSEN/daniela /[id number] d: 10/10/16 1430 t: 10/18/16 0631, OUTPATIENT REPORT
--- NOTE | ~2016-10-09 | DS ---
PATIENT'S NAME: NATO CAMARA [facility] AGE: 75 Y [address] ROOM: [address] [place] [address] LOCATION: GPCU ADMIT DATE: 10/09/2016 Discharge Summary DISCHARGE DATE: 10/13/2016 FAMILY PHYSICIAN: Kuldip Pradhan MD ATTENDING PHYSICIAN: Marek De León FINAL DIAGNOSIS: Left groin infection. SECONDARY DIAGNOSES: 1. Peripheral vascular disease 2. History of coronary artery disease postop coronary artery bypass grafting. 3. Essential hypertension. 4. History of aortic valve replacement. 5. Chronic obstructive pulmonary disease. 6. Dyslipidemia. 7. Obesity. PROCEDURES: Incision and drainage of left groin by Dr. De León on 10/09/2016. CONSULTATIONS: 1. Hospitalist for medical management, Dr. Azar. 2. Infectious Disease, Dr. Willard. HOSPITAL COURSE: This is a 75-year-old male, who presented to the emergency room on 10/09/2016, with an increase in erythema and rash to left groin and surrounding area. The patient reports that he had been started on clindamycin and seen by wound care nurse in [place]. Other than the rash and erythema, the patient without systemic symptoms of fevers, chills, or feeling unwell. The patient with a history of peripheral vascular disease with left common femoral artery endarterectomy attempt on 09/15/2016. This resulted in a fractured artery requiring repair and abandonment of endarterectomy. See the patient history and physical for full patient details. A CT of his abdomen and pelvis with contrast was obtained in the emergency room revealing a fluid collection in the left groin consistent with seroma, liquified hematoma, or abscess measuring 9 x 5 x 4.5 cm. Prior to admission, a culture of his wound was obtained and the patient was started on IV vancomycin and Levaquin. The patient was kept n.p.o., and after evaluation by Dr. De León, it was decided that the patient was to undergo incision and drainage of the left groin. Dr. De León evacuated murky serous fluid which represented infected seroma and old- appearing hematoma. Cultures also obtained in the operating room. The patient's wound was left open and packed with Dakin-soaked gauze. The patient tolerated the procedure well and after recovery was admitted to Progressive Care Unit for monitoring of telemetry, vitals, labs, surgical site, pain management, medication administration, and nursing assistance. The patient remained on bedrest for 12 hours. His diet was advanced as tolerated and PATIENT'S NAME: NATO CAMARA [facility] AGE: 75 Y [address] ROOM: [address] [place] [id number] LOCATION: GPCU ADMIT DATE: 10/09/2016 Discharge Summary DISCHARGE DATE: 10/13/2016 FAMILY PHYSICIAN: Kuldip Pradhan MD ATTENDING PHYSICIAN: Marek De León normal saline was continued for 12 hours. On postop day #1, the wound appeared clean and wet-to-dry dressings were reapplied. Infectious Disease consult along with Wound Care for VAC placement. Overall, the patient had a decrease in surrounding erythema and warmth. A wound VAC was placed to his left groin and wound measurements were as followed: Width 6 cm, length 6.2 cm, and depth. 6.5 cm. Routine VAC changes to begin on 10/14/2016. We also submitted for request for home VAC approval. The patient began working with physical therapy. Hospitalist ordered nebulizer treatments and encouraged incentive spirometer due to the patient's history of COPD. On postop day 2, wound cultures from the emergency room with a growth of Enterobacter aerogenes and Enterococcus faecalis. At that time, vanco was discontinued and the patient was continued on IV Levaquin. His lisinopril was increased to 40 mg daily for hypertension. On postop day #3, the patient was seen by Infectious Disease and it was recommended that the patient be placed on IV vancomycin every day for 3 weeks due to arterial exposure. The patient had an unsuccessful attempt at PICC line placement that evening to the right cephalic vein. On postop day 4, they were able to get a PICC line placed to the left basilic vein. The patient was found in a stable condition with significant improvement in periwound erythema, rash, and warmth. He denied any fevers or chills or other system problems. The operating room cultures returned with E. coli and Enterococcus faecalis. The patient was discharged home with home health. He is to receive IV antibiotics as well as routine wound VAC changes. DIAGNOSTICS/LABS: White blood cell count trending 9.9, 11.8, 11, 9.5, 10.2. Hemoglobin 12.7, 11.4, 11.5, 11.7, and 11.8. CRP 0.59. Lactate 1.7. Procalcitonin less than 0.05. Blood cultures without growth. DISCHARGE ORDERS: The patient is to be discharged to home on his previous diet. He is to avoid heavy lifting for 2 weeks. The patient is to receive assistance from [facility]. They are to begin with wound VAC changes on 10/14/2016. He is to receive weekly labs including CBC and renal panel starting on 10/17/2016. He is to receive PICC line dressing changes twice weekly and as needed. He is to follow up with his primary care provider Dr. Pradhan at [facility] on 10/25/2016. He is to receive IV vanco daily x3 weeks at the [facility]. A vanco trial is to be drawn on 10/17/2016. He is to return to Wound Care at [facility] on 10/26/2016, for evaluation of wound. The Vascular team will also evaluate the patient's wound while he is in wound care. He is to report any signs or symptoms of infection including increased redness, swelling, drainage, fevers, or chills. DISCHARGE MEDICATIONS: 1. Lipitor 80 mg p.o. every evening. 2. Carvedilol 12.5 mg p.o. daily. PATIENT'S NAME: NATO CAMARA [facility] AGE: 75 Y [address] ROOM: [place] [address] LOCATION: GPCU ADMIT DATE: 10/09/2016 Discharge Summary DISCHARGE DATE: 10/13/2016 FAMILY PHYSICIAN: Kuldip Pradhan MD ATTENDING PHYSICIAN: Marek De León 3. Xalatan drops 1 drop ophthalmic every night at bedtime. 4. Lisinopril 20 mg p.o. daily. 5. Aspirin 81 mg p.o. daily. 6. Alphagan 0.2% solution 1 drop ophthalmic twice daily. 7. Multivitamin 1 tablet p.o. daily. 8. Albuterol 1 inhalation 3 times daily, wheezing. 9. Vancomycin 1.75 g intravenously every day. 10. Colace 100 mg p.o. twice daily. 11. Florastor 1 tablet p.o. twice daily. 12. Levaquin 500 mg p.o. daily, stop on 11/06/2016. DISPOSITION: The patient is discharged home in a stable condition with home health. He is to follow discharge orders as prescribed. Education about discharge including incisional care, home health, IV antibiotics, PICC line care, medications, prescriptions, diet, activity, and followup appointments given to the patient. The patient verbalized understanding of the plan and had no further questions or concerns. He is to follow discharge orders as prescribed. YO JILLIAN CEDENO FOR MAREK DE LEÓN MD TO/daniela /[id number] d: 10/15/16 0513 t: 10/19/16 1103, DISCHARGE SUMMARY
[~2016-10-09 10:14] MED LIST changes: -ADVAIR 250-501 EACH INH; -BROVANA15 MCG/2 M NS; -COLACE100 MG PO; -DUONEB INH; -FLOMAX0.4 MG PO; -FLORASTOR250 MG PO; -LEVAQUIN500 MG PO; -NITROSTAT0.4 MG SL; -NORCO 5-325 TA1 EACH PO; -VANCO 1.751.75 GM/25 IV; -VANCOMYCIN HCL1 GM IV
[2016-10-09 10:53] LABS: HEMATOCRIT 38.2 % (37.0-53.0); HEMOGLOBIN 12.7 g/dL (11.0-16.0); MCH 31.3 pg (27.0-34.0); MCHC 33.2 gm/dL (32.0-36.5); MCV 94.1 fl (83.0-98.0); MPV 9.3 fl (9.4-12.4); RBC 4.06 M/uL (3.50-5.50); RDW-CV 12.8 % (11.9-14.6); WBC 9.9 K/uL (4.0-11.0)
[2016-10-09 10:56] LABS: PLATELET COUNT 266 K/uL (150-450)
[2016-10-09 11:02] LABS: INR - (THERAPEUTIC) 0.99 (0.92-1.07); PROTIME 10.4 SECONDS (9.8-11.4); PTT 25 SECONDS (25-32)
[2016-10-09 11:14] LABS: ALBUMIN 3.2 gm/dL (3.5-5.0); ANION GAP 10.2 (10.0-19.0); CALCIUM 8.2 mg/dL (8.5-10.5); CREATININE 0.9 mg/dL (0.6-1.3); POTASSIUM 4.2 mMol/L (3.7-5.1); TOTAL BILIRUBIN 0.4 mg/dL (0.0-1.5); TOTAL PROTEIN 6.8 g/dL (6.0-8.4)
[2016-10-09 11:45] LABS: ABSOLUTE NEUTROPHIL CT (ANC) 5.8 K/uL (1.4-9.0); BANDED NEUTROPHIL # 0.2 K/uL (0.0-0.1); BANDED NEUTROPHILS % 2 %; LYMPHOCYTE # 1.3 K/uL (0.8-4.0); LYMPHOCYTE % 13 %; MONOCYTE # 0.8 K/uL (0.0-1.0); SEGMENTED NEUTROPHIL # 5.6 K/uL (1.4-9.0); SEGMENTED NEUTROPHIL % 57 %
[2016-10-10 04:03] LABS: BASOPHIL % 0.3 %; EOSINOPHIL % 16.7 %; HEMATOCRIT 36.1 % (37.0-53.0); HEMOGLOBIN 11.4 g/dL (11.0-16.0); IMMATURE GRANULOCYTE # 0.1 K/uL (0.0-0.3); IMMATURE GRANULOCYTE % 0.4 %; LYMPHOCYTE # 0.8 K/uL (0.8-4.0); LYMPHOCYTE % 6.4 %; MCH 30.4 pg (27.0-34.0); MCHC 31.6 gm/dL (32.0-36.5); MCV 96.3 fl (83.0-98.0); MONOCYTE # 0.7 K/uL (0.0-1.0); MPV 9.1 fl (9.4-12.4); NEUTROPHIL # (ANC) 8.2 K/uL (1.4-9.0); NEUTROPHIL % 70.2 %; NRBC % 0 /100WBC (0-0.00); PLATELET COUNT 245 K/uL (150-450); RBC 3.75 M/uL (3.50-5.50); RDW-CV 13.1 % (11.9-14.6); WBC 11.8 K/uL (4.0-11.0)
[2016-10-10 04:20] LABS: ANION GAP 9.2 (10.0-19.0); CALCIUM 7.7 mg/dL (8.5-10.5); CREATININE 0.8 mg/dL (0.6-1.3); POTASSIUM 4.2 mMol/L (3.7-5.1)
[2016-10-11 04:22] LABS: HEMATOCRIT 34.9 % (37.0-53.0); HEMOGLOBIN 11.5 g/dL (11.0-16.0); MCH 31.3 pg (27.0-34.0); MCV 95.1 fl (83.0-98.0); MPV 9.1 fl (9.4-12.4); PLATELET COUNT 228 K/uL (150-450); RBC 3.67 M/uL (3.50-5.50); RDW-CV 13.1 % (11.9-14.6)
[2016-10-11 05:06] LABS: ABSOLUTE NEUTROPHIL CT (ANC) 6.2 K/uL (1.4-9.0); BANDED NEUTROPHIL # 0.2 K/uL (0.0-0.1); BANDED NEUTROPHILS % 2 %; LYMPHOCYTE # 1.8 K/uL (0.8-4.0); LYMPHOCYTE % 16 %; MONOCYTE # 0.8 K/uL (0.0-1.0); SEGMENTED NEUTROPHIL # 5.9 K/uL (1.4-9.0); SEGMENTED NEUTROPHIL % 54 %
[2016-10-11] MEDS ORDERED: DUONEB INH (16:47)
[2016-10-12 04:02] LABS: HEMATOCRIT 34.8 % (37.0-53.0); HEMOGLOBIN 11.7 g/dL (11.0-16.0); MCH 31.8 pg (27.0-34.0); MCHC 33.6 gm/dL (32.0-36.5); MCV 94.6 fl (83.0-98.0); MPV 9.3 fl (9.4-12.4); PLATELET COUNT 221 K/uL (150-450); RBC 3.68 M/uL (3.50-5.50); RDW-CV 13.1 % (11.9-14.6); WBC 9.5 K/uL (4.0-11.0)
[2016-10-12 04:17] LABS: ANION GAP 11.1 (10.0-19.0); CALCIUM 7.9 mg/dL (8.5-10.5); CREATININE 1.2 mg/dL (0.6-1.3); POTASSIUM 4.1 mMol/L (3.7-5.1)
[2016-10-12 05:00] LABS: ABSOLUTE NEUTROPHIL CT (ANC) 4.4 K/uL (1.4-9.0); BANDED NEUTROPHIL # 0.2 K/uL (0.0-0.1); BANDED NEUTROPHILS % 2 %; LYMPHOCYTE # 1.9 K/uL (0.8-4.0); LYMPHOCYTE % 20 %; MONOCYTE # 0.4 K/uL (0.0-1.0); SEGMENTED NEUTROPHIL # 4.2 K/uL (1.4-9.0); SEGMENTED NEUTROPHIL % 44 %
[2016-10-13 03:40] LABS: HEMATOCRIT 34.9 % (37.0-53.0); HEMOGLOBIN 11.8 g/dL (11.0-16.0); MCHC 33.8 gm/dL (32.0-36.5); MCV 94.6 fl (83.0-98.0); MPV 9.4 fl (9.4-12.4); PLATELET COUNT 224 K/uL (150-450); RBC 3.69 M/uL (3.50-5.50); RDW-CV 13.2 % (11.9-14.6); WBC 10.2 K/uL (4.0-11.0)
[2016-10-13 05:21] LABS: ABSOLUTE NEUTROPHIL CT (ANC) 5.8 K/uL (1.4-9.0); LYMPHOCYTE # 1.3 K/uL (0.8-4.0); LYMPHOCYTE % 13 %; MONOCYTE # 0.8 K/uL (0.0-1.0); SEGMENTED NEUTROPHIL # 5.8 K/uL (1.4-9.0); SEGMENTED NEUTROPHIL % 57 %
[2016-10-13] MEDS ORDERED: VANCO 1.751.75 GM/25 IV (15:23)
[2016-10-13] MEDS ORDERED: COLACE100 MG PO (15:29)
[2016-10-13] MEDS ORDERED: FLORASTOR250 MG PO (15:30)
[2016-10-13] MEDS ORDERED: LEVAQUIN500 MG PO (15:31)
== END 2016-10-13 16:45 | disposition home health service (06) | DRG 857 ==
LOC: GMED 10:14 → GPCU 11:45
PROVIDERS: Emergency Medicine; Nurse Practitioner Family; ADMIT Surgery Vascular Surgery
PROC: 0J9C0ZZ Drainage of Pelvic Region Subcutaneous Tissue and Fascia, Open Approach (ICD-10-PCS; principal; 2016-10-09)
DX: T81.4XXA Infection following a procedure, initial encounter (principal); L02.91 Cutaneous abscess, unspecified; E88.89 Other specified metabolic disorders; T82.898A Other specified complication of vascular prosthetic devices, implants and grafts, initial encounter; L03.314 Cellulitis of groin; J44.9 Chronic obstructive pulmonary disease, unspecified; E78.5 Hyperlipidemia, unspecified; E66.9 Obesity, unspecified; Z68.32 Body mass index [BMI] 32.0-32.9, adult; I25.10 Atherosclerotic heart disease of native coronary artery without angina pectoris; I73.9 Peripheral vascular disease, unspecified; Z86.79 Personal history of other diseases of the circulatory system; Z87.891 Personal history of nicotine dependence; I12.9 Hypertensive chronic kidney disease with stage 1 through stage 4 chronic kidney disease, or unspecified chronic kidney disease; N18.3 Chronic kidney disease, stage 3 (moderate)
CPT/HCPCS: C1751; J0690; J1956; J3370; J7030; J7040; J7050

== ENCOUNTER 2016-10-15 16:27 | Inpatient (IN) | payer MEDICARE, BC ==
[~2016-10-15] VITALS: Ht 172.7 cm; Wt 94.2 kg
--- NOTE | ~2016-10-15 | ENPV ---
Vascular Lower Extremities DVT Study Procedure Demographics Patient Name NATO CAMARA Date of Study 10/15/2016 Patient Number [id number] Gender Male Date of 1940 Age 75 Visit Number [id number] Height Accession Number [id number] Weight Room Number G3201 BSA BMI Referring Carolynn Lion Sarthak Jara MD Physician MD Physician Adrian Jimenes MD Physician Ordering Physician Adrian Jimenes MD [employer] Sales Consultant Dough Mixer Helper Tere Alvarenga RVT Conclusions Summary No evidence of deep vein thrombosis in the left lower extremity . Procedure Type of Study: Veins:Lower Extremities DVT Study, Lower Extremity Left. Indications for Study:Swelling of Limb. Appropriate Use Criteria:9 Allergies - Penicillin. - Antibiotics:(Amoxicillin). Patient Status:STAT. Study Location:ER. Technical Quality:Adequate visualization. Velocities are measured in cm/s ; Diameters are measured in cm Right Lower Extremities DVT Study Measurements Right 2D and Doppler Measurements + + + + +------+------+ + !Location !Visualized!Compressibility!Thrombosis!Signal!Reflux!Reflux ! ! ! ! ! ! ! !(sec) ! + + + + +------+------+ + !Common !Yes !Yes !None ! ! ! ! !Femoral ! ! ! ! ! ! ! + + + + +------+------+ + Left Lower Extremities DVT Study Measurements Left 2D and Doppler Measurements + + + + +------+------+ + !Location !Visualized!Compressibility!Thrombosis!Signal!Reflux!Reflux ! ! ! ! ! ! ! !(sec) ! + + + + +------+------+ + !GSV Thigh !Yes !Yes !None !Phasic!No ! ! + + + + +------+------+ + !Common !Yes !Yes !None !Phasic!No ! ! !Femoral ! ! ! ! ! ! ! + + + + +------+------+ + !Prox !Yes !Yes !None !Phasic!No ! ! !Femoral ! ! ! ! ! ! ! + + + + +------+------+ + !Mid Femoral!Yes !Yes !None !Phasic!No ! ! + + + + +------+------+ + !Dist !Yes !Yes !None !Phasic!No ! ! !Femoral ! ! ! ! ! ! ! + + + + +------+------+ + !Popliteal !Yes !Yes !None !Phasic!No ! ! + + + + +------+------+ + !Gastroc !Yes !Yes !None !Phasic!No ! ! + + + + +------+------+ + !PTV !Yes !Yes !None !Phasic!No ! ! + + + + +------+------+ + !Peroneal !Yes !Yes !None !Phasic!No ! ! + + + + +------+------+ + Signature dtt: PATSY GALVAN dtd: 10/15/16 1730 Physician Self Edit
--- NOTE | ~2016-10-15 | HP ---
PATIENT'S NAME: NATO CAMARA [facility] AGE: 75 Y [address] ROOM: [place] [address] LOCATION: [facility] ADMIT DATE: 10/15/2016 History & Physical DISCHARGE DATE: FAMILY PHYSICIAN: Kuldip Pradhan MD ATTENDING PHYSICIAN: JIMENA KLEIN DATE OF SERVICE: 10/15/2016 CHIEF COMPLAINT: Worsening left lower extremity swelling and urine retention. HISTORY OF PRESENT ILLNESS: This is a very pleasant 75-year-old male recently admitted from October 09 through , at that time presenting with a left groin abscess and requiring incision and drainage and wound VAC placement by Dr. De eLón. The patient had been treated on with broad-spectrum antibiotics during his stay and was discharged after recommendations from Infectious Disease, stated to send on Levaquin and vancomycin. The patient notes that he has been taking more pain medications of late and has been more constipated. He had a beer around lunch time trying to get his urine flowing and states that his "plumbing is just not right" and has been struggling to urinate. He noted the left lower extremity edema late this morning and this prompted his presentation. Currently, patient denies any recent fevers, chills, chest pain, shortness of breath, worsening abdominal pain, and increased warmth or redness around the site of his recent wound VAC placement. He notes significant relief following Trujillo placement. Dr. De León has seen patient in the emergency department, and after initial imaging has been negative for DVT and CT scan with chronic changes without acute concerns, it was requested the patient be admitted for ongoing management of his urinary retention and lower extremity edema. PAST MEDICAL HISTORY: 1. Peripheral vascular disease. 2. Coronary artery disease, status post CABG. 3. Essential hypertension. 4. History of aortic valve replacement. 5. Chronic obstructive pulmonary disease. 6. Hyperlipidemia. 7. Obesity. PAST SURGICAL HISTORY: Reviewed and most pertinent for infected seroma of left groin status post incision and drainage on October 09 with cultures growing Enterobacter of two different species. FAMILY HISTORY: PATIENT'S NAME: NATO CAMARA [facility] AGE: 75 Y [address] ROOM: [place] [address] LOCATION: [facility] ADMIT DATE: 10/15/2016 History & Physical DISCHARGE DATE: FAMILY PHYSICIAN: Kuldip Pradhan MD ATTENDING PHYSICIAN: JIMENA KLEIN Extensive history of coronary artery disease. SOCIAL HISTORY: . Prior smoker, but quit 20+ years ago. Does enjoy 2-3 beers on nearly daily basis. ALLERGIES: REPORTS HISTORY OF LIP SWELLING WITH PENICILLINS. MEDICATIONS: Pulled from recent discharge summary two days ago include Lipitor, carvedilol, Xalatan, Alphagan eye drops, lisinopril, aspirin, multivitamin, albuterol, vancomycin, Levaquin, Colace, Florastor. REVIEW OF SYSTEMS: Complete review of systems performed and negative except as noted above in HPI. PHYSICAL EXAMINATION: VITAL SIGNS: Temp 98.4, pulse 82, blood pressure 159/70, respirations 19, saturating 94% on room air. Weight is 98.6 kg. GENERAL: The patient is in no acute distress, lying comfortably in the emergency department bed. HEENT: Head, normocephalic, atraumatic. Eyes, pupils equal, round, react to light. Extraocular muscle are intact without scleral icterus or conjunctival injection. ENT, moist mucous membranes. No nasal discharge. NECK: Supple. No thyromegaly. No lymphadenopathy. Unable to appreciate any elevation of JVD. CARDIOVASCULAR: Regular rate and rhythm. No murmurs, rubs, or gallops appreciated. Does have midline sternotomy scar. Pulses are 2+ bilaterally in radial and 1+ in dorsalis pedis bilaterally. RESPIRATIONS: Clear to auscultation bilaterally, saturating well on room air with normal respiratory effort. ABDOMEN: Soft, obese, and distended, but nontender to palpation with normoactive bowel sounds. : Trujillo catheter in place. EXTREMITIES: Left groin wound VAC in place and visualized without surrounding appreciable warmth or erythema. 2+ pitting edema bilateral lower extremities. NEUROLOGIC: Alert and oriented x3. No focal deficits appreciated on gross neurologic examination. PSYCHIATRIC: Normal mood and affect. LABS AND IMAGING: CBC with white count 9.9, hemoglobin 10.9, platelets 174. CMP notable for sodium 139, potassium 3.9, chloride 104, bicarb 27, BUN 10, creatinine 1.2, PATIENT'S NAME: NATO CAMARA [facility] AGE: 75 Y [address] ROOM: [place] [address] LOCATION: [facility] ADMIT DATE: 10/15/2016 History & Physical DISCHARGE DATE: FAMILY PHYSICIAN: Kuldip Pradhan MD ATTENDING PHYSICIAN: JIMENA KLEIN calcium 7.6, glucose 108. LFTs all within normal limits aside from decreased albumin at 2.8. BNP is 1412. Troponin is less than 0.04. Procalcitonin less than 0.05. Lactate 1.0. Ultrasound of lower extremities is without clot. Blood cultures from last day remain negative. CT abdomen shows left superficial graft which is occluded and stable chronically as well as common iliac stents. No free air fluid. No concerning findings regarding his kidneys. ASSESSMENT: 1. Acute urinary retention likely secondary to recent pain medications and compounded by constipation. 2. Volume overload with lower extremity edema. 3. Recent left groin abscess with wound VAC in place. 4. Severe peripheral vascular disease. 5. Obesity. PLAN: Will admit to inpatient status, maintain Trujillo catheter for urinary retention and diurese with a single dose of Lasix currently and monitor output from this. We will also increase bowel regimen and continue antibiotics started at last stay. Has no infectious concerns currently, no need to modify this regimen. Dopplers negative for DVT. The patient is a full code. We will use heparin 5000 subcu t.i.d. for DVT prophylaxis. Dr. De León is aware of the patient and has seen in the emergency department. Appreciate assistance and followup. Time spent on date of admission including [id number] evaluation and review of recent hospital stay records is 35 minutes. MD BENJA COREA/modl /[id number] D: [id number] T: [id number] HISTORY & PHYSICAL
--- NOTE | ~2016-10-15 | CON ---
PATIENT'S NAME: NATO CAMARA [facility] AGE: 75 Y [address] ROOM: [place] [address] LOCATION: [facility] ADMIT DATE: 10/15/2016 Consultation DISCHARGE DATE: 10/17/2016 FAMILY PHYSICIAN: Kuldip Pradhan MD ATTENDING PHYSICIAN: Moise Escobar DATE OF CONSULTATION: 10/17/2016 REFERRING PHYSICIAN: Marek De León MD CONSULTING PHYSICIAN: Dr. Yan. REASON FOR CONSULTATION: Urinary retention. HISTORY OF PRESENT ILLNESS: This is a 75-year-old gentleman admitted on 10/15/2016 with urinary retention and unilateral left lower leg swelling. He had a Trujillo catheter placed. His leg swelling is down. He has been on fluid restriction and diuretics. He has had his catheter removed. There is some concern that he is failing his voiding trial. He has multiple risk factors for retention. He is recently postop. He still has a drain in his left groin. He has underlying BPH. I did a TURP on him in 2007. He also had significant constipation. That is doing better. He tells me, he is doing well from a voiding standpoint prior to about a week ago. He was not having any significant issues. I have not seen him in followup. He is followed with Dr. Pradhan. He has now been started on an alpha billie. His catheter is out. His current bladder scans around 300 mL. He is starting to get an urge. He wants to go home today. We talked about going home with or without a catheter. His will not be here for another couple hours, so we can give him some more time. Hopefully, he will have a successful void. If not, he can consider whether or not he wants to go home with the catheter in. If he goes home with the catheter, I would recommend either home health or the hospital give him voiding trial next week. Specifically, home health comes in and takes care of his drain and he goes to the hospital daily for IV infusion through his PICC line. I would certainly continue him on the alpha billie. Otherwise, his admission UA was unremarkable. He does not appear to be infected. His renal function is relatively well maintained. PATIENT'S NAME: NATO CAMARA [facility] AGE: 75 Y [address] ROOM: [address] [address] LOCATION: [facility] ADMIT DATE: 10/15/2016 Consultation DISCHARGE DATE: 10/17/2016 FAMILY PHYSICIAN: Kuldip Pradhan MD ATTENDING PHYSICIAN: Moise Escobar IMPRESSION: 1. Urinary retention. 2. Benign prostatic hypertrophy, status post TURP. PLAN: Continue with voiding trial as above. Thank you for the consultation. OPAL CONTRERAS MD [facility]/modl /[id number] CC: Kuldip Pradhan MD d: 10/18/16 0000 t: 10/18/16 1110, CONSULTATION REPORT
--- NOTE | ~2016-10-15 | ER ---
[facility] 75 Y [address] ROOM: [place] [address] LOCATION: [facility] ADMIT DATE: 10/15/2016 ER/Outpatient Report DISCHARGE DATE: FAMILY PHYSICIAN: Kuldip Pradhan MD ATTENDING PHYSICIAN: JIEMNA ESCOBAR Time of Arrival: 1627 hours Time of Evaluation: 1629 hours CHIEF COMPLAINT: Increased leg swelling. HISTORY OF PRESENT ILLNESS: The patient is a 75-year-old male, who presents to the emergency department today with a chief complaint of increased leg swelling. He reports that it started 1 day prior to arrival. The patient recently underwent a left groin abscess requiring incision and drainage and VAC placement by Dr. De León. He was then discharged from the hospital on . The patient was sent home on Levaquin and vancomycin. He reports he is struggling to urinate as well as struggling to have a bowel movement. Denies any fevers or chills. No chest pain. No shortness of breath. He did notice some increased redness inside the VAC placement. He noted the swelling in his lower extremity and called Dr. De León who told him to come to the emergency department. PAST MEDICAL HISTORY: Peripheral vascular disease, coronary artery disease, hypertension, COPD, dyslipidemia, obesity. PAST SURGICAL HISTORY: Left groin incision and drainage on October 09, coronary artery bypass grafting, aortic valve replacement. FAMILY HISTORY: Coronary artery disease. SOCIAL HISTORY: The patient denies any tobacco use. Does report drinking 2-3 beers on daily basis. Denies any illicit drug use. ALLERGIES: PENICILLIN. MEDICATIONS: Please see list. [facility]GE: 75 Y [address] ROOM: [address] [address] LOCATION: [facility] ADMIT DATE: 10/15/2016 ER/Outpatient Report DISCHARGE DATE: FAMILY PHYSICIAN: Kuldip Pradhan MD ATTENDING PHYSICIAN: JIMENA ESCOBAR PRIMARY CARE DOCTOR: Narciso in [place], Dr. Pradhan. Dr. De León for Vascular Surgery. REVIEW OF SYSTEMS: All systems are reviewed by myself and negative with the exception of those discussed in HPI and past medical history. PHYSICAL EXAMINATION: VITAL SIGNS: Weight 98.6 kg; blood pressure 204/81, recheck at 159/70; pulse 82; respiratory rate 19; temperature 98.4; oxygen saturation 94% on room air. GENERAL: The patient is a 75-year-old male, appears his stated age, in no acute distress at this time. HEENT: Head normocephalic, atraumatic. Pupils are equal, round, and reactive to light. Mucous membranes are moist. NECK: Supple. There is no nuchal rigidity. CARDIOVASCULAR: Regular rate and rhythm. No murmurs, rubs, or gallops. LUNGS: Diminished diffusely with some mild respiratory effort increase. ABDOMEN: Soft, nontender, and nondistended. No rebound, rigidity, or guarding. Positive bowel sounds. MUSCULOSKELETAL: The patient moves all 4 extremities. SKIN: The patient has a left inguinal wound with wound VAC in place. There is some surrounding mild erythema. There is 2+ pretibial edema in bilateral lower extremities. LABORATORY DATA AND X-RAYS: EKG is obtained, interpreted by myself shows sinus rhythm with a rate of 78, normal axis, CO interval 228, QTc is normal, left bundle-branch block, Sgarbossa criteria is negative, no significant change from 09/16/2016. Lactate is normal. CMP is normal. LFTs normal. CK-MB and troponin are normal. ProBNP is 1412. CBC is unremarkable. Venous Doppler is negative for blood clots. IMPRESSION: 1. Acute urinary retention. 2. Bilateral lower extremity edema with increased edema in the left lower extremity. 3. Left groin abscess with wound VAC in place. 4. Peripheral vascular disease. 5. Obesity. 6. Initial visit. EMERGENCY DEPARTMENT COURSE: The patient was brought back to the examination room. Seen and evaluated by PATIENT'S NAME: NATO CAMARA [facility] AGE: 75 Y [address] ROOM: [place] [address] LOCATION: [facility] ADMIT DATE: 10/15/2016 ER/Outpatient Report DISCHARGE DATE: FAMILY PHYSICIAN: Kuldip Pradhan MD ATTENDING PHYSICIAN: JIMENA ESCOBAR myself. A Trujillo catheter was placed with relief of the patient's symptoms and [address] De León has seen and evaluated the patient here in the emergency department as well. He has ordered a CT scan of the abdomen and pelvis with IV contrast. I have discussed those results with the radiologist, the results do appear stable. I have discussed the case with Dr. Escobar, he has seen and evaluated the patient here in the emergency department as well. Please see Dr. Escobar and Dr. Swanson's dictation. DISPOSITION: The patient is admitted under the care Dr. Escobar in conjunction with Dr. De León in stable condition. DO IVANIA LOPEZ/modl /[id number] d: 10/16/16632 t: 10/21/16 0649, OUTPATIENT REPORT
--- NOTE | ~2016-10-15 | DS ---
PATIENT'S NAME: [facility] AGE: 75 Y [address] ROOM: [place] [address] [place] [facility] [place]: 10/15/2016 Discharge Summary DISCHARGE DATE: 10/17/2016 FAMILY PHYSICIAN: Kuldip Pradhan MD ATTENDING PHYSICIAN: Moise Escobar PRINCIPAL DISCHARGE DIAGNOSIS: Urinary retention. SECONDARY DIAGNOSES: 1. Left lower extremity edema with negative venous Doppler on 10/15/2016. 2. Peripheral vascular disease, severe. 3. Groin abscess with wound VAC in place. 4. Hypercholesterolemia. 5. Coronary artery disease, status post coronary artery bypass grafting. 6. Essential hypertension. 7. Chronic obstructive pulmonary disease. CONSULTATIONS: Dr. Acosta of Urology. BRIEF HISTORY: Mr. Redmond is a 75-year-old, male, who has a recent history of erythema in his groin pain, status post attempt at left common femoral artery endarterectomy, which was complicated by infected seroma and the patient had undergone incision and drainage. There was some exposure of his vessel and he was discharged to home on 10/13/2016 with a wound VAC in place. IV antibiotics scheduled for one month duration with home health wound care followup and IV antibiotics to be administered at local hospital. Suddenly on the , he developed difficulty urinating and also noted that he had increased swelling in his lower extremities, but more pronounced on the left lower extremity. That day he was drinking some beer trying to get his urine flowing and just had to struggle to urinate. In addition, he has some associated constipation and ENT complained about the left lower extremity edema on presentation to the emergency room. Venous Doppler ultrasound of the left lower extremity was negative for a DVT. He was seen by Dr. De León in the emergency room where he also had CT obtained. Results were notable for extensive vascular calcifications of the aorta, iliac femoral, and mesenteric arteries, that is why he has stent present in the right renal artery and the left common iliac artery. 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 He does have occlusion of his left femoral superficial graft, surgical wound left inguinal area has no residual fluid collection and there were extensive vascular calcifications with the right renal and left common iliac stents in place. He also has cholelithiasis incidentally noted. PATIENT'S NAME: [facility] AGE: 75 Y [address] ROOM: [id number] [place], [place] [address] [place] [facility] [place]: 10/15/2016 Discharge Summary DISCHARGE DATE: 10/17/2016 FAMILY PHYSICIAN: Kuldip Pradhan MD ATTENDING PHYSICIAN: Moise Escobar Trujillo was placed on admission. This was discontinued this morning. The patient initially had some difficulty urinating and had not urinated for 5 hours. The patient had residual of 300 mL in his bladder. After a dose of Lasix, he had urinated twice. I also asked Dr. Acosta, the urologist to see him as Dr. Acosta knew him from his transurethral prostatectomy in 2007. He was able to assess him and agreed with the plan to go home with or without a Trujillo depending on the patient's ability to void, he could follow up with home health. The patient has voided adequately and I think it is the best idea for him to go home without the Trujillo at this time, but should he develop further difficulty with urination he will contact the home health nurse to place the Trujillo and then he can follow up Dr. Acosta as an outpatient. The patient agrees with this plan. The patient was started on Flomax yesterday and he will continue this as an outpatient. The patient is anxious to go home and his other problems are stable as at discharge on the . INSTRUCTIONS AT DISCHARGE: [place] [employer]. Low fat diet. Activity as tolerated. FOLLOWUP: 1. Follow up with Dr. Acosta as needed and possibly in 1 month. 2. Infectious Diseases as needed. 3. Dr. De León as previously planned for his vascular follow up. 4. 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 He has a PCP, Dr. Kuldip Pradhan, he was scheduled to see him on 10/25 and I think he should keep this appointment. He also has a wound care appointment on 10/26/2016 and he should continue the weekly labs that were set up at discharge on 10/13. CONDITION AT DISCHARGE: Good. MEDICATIONS AT THE TIME OF DISCHARGE: 1. Vancomycin 1.75 g daily IV. 2. Aspirin 81 mg p.o. daily. 3. Atorvastatin 80 mg p.o. at bedtime. 4. Carvedilol 12.5 mg p.o. every morning with food. 5. Colace 100 mg p.o. daily. 6. Levaquin 500 mg p.o. daily. 7. Lisinopril 20 mg p.o. every morning. 8. Multivitamin p.o. daily. 9. Florastor 250 mg p.o. daily. 10. Alphagan drops b.i.d. 11. Xalatan drops at bedtime. 12. Albuterol and ipratropium nebs t.i.d. p.r.n. wheezing. PATIENT'S NAME: [facility] AGE: 75 Y [address] ROOM: [place] [address] [place] [facility] [place]: 10/15/2016 Discharge Summary DISCHARGE DATE: 10/17/2016 FAMILY PHYSICIAN: Kuldip Pradhan MD ATTENDING PHYSICIAN: Moise Escobar 13. Tamsulosin 0.4 mg p.o. at bedtime for urinary retention, this is new. He will be given a script for 30 day supply. Time spent was greater than 35 minutes involved with seeing the patient earlier today, assessing him, consulting Dr. Acosta, and discharge process. BA CARRILLO MD LM/daniela /[id number] d: 10/18/16 1433 t: 10/24/16 1829, DISCHARGE SUMMARY
--- NOTE | ~2016-10-15 | CON ---
PATIENT'S NAME: [facility] AGE: 75 Y [address] ROOM: [place] [address] LOCATION: [facility] [place] ADMIT DATE: 10/15/2016 Consultation DISCHARGE DATE: 10/17/2016 FAMILY PHYSICIAN: Kuldip Pradhan MD ATTENDING PHYSICIAN: Merced Yan DATE OF CONSULTATION: 10/16/2016 REFERRING PHYSICIAN: Marek De León MD CONSULTATION NOTE REASON FOR VISIT: Emergency room visit for swelling and pain of the left leg. HISTORY OF PRESENTING ILLNESS: This is a 75-year-old male, well known to the Vascular Surgery team. He presents to the emergency room with sudden onset of pain and swelling to the left leg today. The patient with history of left groin infection with incision and drainage on 10/09/2016 with recent discharge from hospital on 10/13/2016. The patient reports pain mostly in the calf. He denies any fevers. The patient has been getting IV antibiotics daily through his PICC line. Current antibiotic is vancomycin. The patient also complains of urinary retention. PAST MEDICAL HISTORY: Unchanged from previous vascular history and physical. PAST SURGICAL HISTORY: Unchanged from previous vascular history and physical. FAMILY HISTORY: Unchanged from previous vascular history and physical. SOCIAL HISTORY: Unchanged from previous vascular history and physical. CURRENT MEDICATIONS: See medication reconciliation. ALLERGIES: AMOXICILLIN. PHYSICAL EXAMINATION: GENERAL: The patient is awake, alert, and afebrile. EXTREMITIES: His right groin is soft without erythema. His calf is swollen [facility] AGE: 75 Y [address] ROOM: [place] [address] LOCATION: [facility] [place] ADMIT DATE: 10/15/2016 Consultation DISCHARGE DATE: 10/17/2016 FAMILY PHYSICIAN: Kuldip Pradhan MD ATTENDING PHYSICIAN: Merced Yan with positive Homans sign. PLAN: The patient likely has a DVT. We will order venous duplex in the emergency room. Review of CT scan appears okay, labs are okay. The patient will likely need to be admitted to hospitalists for urinary retention. Follow up with the results of the venous duplex. YO CEDENO APRN FOR MD MITESH TELLO/daniela /[id number] d: 10/20/169 t: 10/27/16 1742, CONSULTATION REPORT
[~2016-10-15 16:27] MED LIST changes: +COLACE100 MG PO; +DUONEB INH; +FLORASTOR250 MG PO; +LEVAQUIN500 MG PO; +VANCO 1.751.75 GM/25 IV
[2016-10-15 17:08] LABS: HEMATOCRIT 32.7 % (37.0-53.0); HEMOGLOBIN 10.9 g/dL (11.0-16.0); MCH 31.5 pg (27.0-34.0); MCHC 33.3 gm/dL (32.0-36.5); MCV 94.5 fl (83.0-98.0); RBC 3.46 M/uL (3.50-5.50); RDW-CV 13.2 % (11.9-14.6); WBC 9.9 K/uL (4.0-11.0)
[2016-10-15 17:10] LABS: PLATELET COUNT 174 K/uL (150-450)
[2016-10-15 17:30] LABS: ALBUMIN 2.8 gm/dL (3.5-5.0); ALK PHOS 91 IU/L (33-138); ALT 19 IU/L (12-78); ANION GAP 11.9 (10.0-19.0); AST 19 IU/L (10-40); BLOOD UREA NITROGEN 10 mg/dL (6-24); CALCIUM 7.6 mg/dL (8.5-10.5); CHLORIDE 104 mMol/L (96-110); CO2 27 mMol/L (22-32); CPK 149 IU/L (35-332); CREATININE 1.2 mg/dL (0.6-1.3); POTASSIUM 3.9 mMol/L (3.7-5.1); SODIUM 139 mMol/L (135-145); TOTAL PROTEIN 6.1 g/dL (6.0-8.4)
[2016-10-15 17:32] LABS: TOTAL BILIRUBIN 0.3 mg/dL (0.0-1.5)
[2016-10-15 17:42] LABS: LYMPHOCYTE # 1.4 K/uL (0.8-4.0); LYMPHOCYTE % 14 %; MONOCYTE # 0.6 K/uL (0.0-1.0); SEGMENTED NEUTROPHIL % 50 %
[2016-10-15 18:17] LABS: BILIRUBIN URINE NEGATIVE (NEGATIVE); BLOOD URINE NEGATIVE /UL (NEGATIVE); COLOR URINE YELLOW (YELLOW); GLUCOSE URINE NEGATIVE (NEGATIVE); KETONE URINE NEGATIVE (NEGATIVE); LEUKOCYTES URINE NEGATIVE /UL (NEGATIVE); NITRITE URINE NEGATIVE (NEGATIVE); PROTEIN URINE 15 mg/dL (NEGATIVE); SPEC GRAVITY URINE 1.015 (1.003-1.035); TURBIDITY URINE CLEAR (CLEAR); UROBILINOGEN URINE NORMAL (NORMAL)
[2016-10-15 18:25] LABS: AMORPHOUS URINE 1+ (NEGATIVE); BACTERIA URINE NEGATIVE (NEGATIVE); EPITHELIAL URINE NEGATIVE #/HPF (NEGATIVE); MUCUS URINE 1+ (NEGATIVE); RBC URINE NEGATIVE #/HPF (NEGATIVE); WBC URINE NEGATIVE #/HPF (NEGATIVE)
[2016-10-16 06:52] LABS: HEMATOCRIT 33.4 % (37.0-53.0); HEMOGLOBIN 11.2 g/dL (11.0-16.0); MCH 31.5 pg (27.0-34.0); MCHC 33.5 gm/dL (32.0-36.5); MCV 94.1 fl (83.0-98.0); MPV 9.1 fl (9.4-12.4); PLATELET COUNT 181 K/uL (150-450); RBC 3.55 M/uL (3.50-5.50); RDW-CV 13.2 % (11.9-14.6); WBC 10.3 K/uL (4.0-11.0)
[2016-10-16 07:18] LABS: ANION GAP 8.8 (10.0-19.0); CALCIUM 8.1 mg/dL (8.5-10.5); CREATININE 1.1 mg/dL (0.6-1.3); POTASSIUM 3.8 mMol/L (3.7-5.1)
[2016-10-16 07:36] LABS: ABSOLUTE NEUTROPHIL CT (ANC) 5.7 K/uL (1.4-9.0); LYMPHOCYTE # 1.4 K/uL (0.8-4.0); LYMPHOCYTE % 14 %; MONOCYTE # 0.6 K/uL (0.0-1.0); SEGMENTED NEUTROPHIL # 5.7 K/uL (1.4-9.0); SEGMENTED NEUTROPHIL % 55 %
[2016-10-17 06:43] LABS: ALBUMIN 2.6 gm/dL (3.5-5.0); ANION GAP 9.8 (10.0-19.0); CALCIUM 8.1 mg/dL (8.5-10.5); CREATININE 0.9 mg/dL (0.6-1.3); PHOSPHORUS 2.7 mg/dL (2.5-4.9); POTASSIUM 3.8 mMol/L (3.7-5.1)
[2016-10-17] MEDS ORDERED: VANCOMYCIN HCL1 GM IV (17:01)
[2016-10-17] MEDS ORDERED: FLOMAX0.4 MG PO (17:04)
[2016-10-17] MEDS ORDERED: ADVAIR 250-501 EACH INH (17:08)
[2016-10-17] MEDS ORDERED: NORCO 5-325 TA1 EACH PO (17:08)
[2016-10-17] MEDS ORDERED: NITROSTAT0.4 MG SL (17:08)
[2016-10-17] MEDS ORDERED: BROVANA15 MCG/2 M NS (17:08)
== END 2016-10-17 18:10 | disposition home health service (06) | DRG 726 ==
LOC: GMED 16:27 → GMSU 18:24
PROVIDERS: Emergency Medicine; Family Medicine; ADMIT Internal Medicine
DX: N40.1 Benign prostatic hyperplasia with lower urinary tract symptoms (principal); I74.09 Other arterial embolism and thrombosis of abdominal aorta; J44.9 Chronic obstructive pulmonary disease, unspecified; L02.214 Cutaneous abscess of groin; R33.8 Other retention of urine; K59.00 Constipation, unspecified; I10 Essential (primary) hypertension; I25.10 Atherosclerotic heart disease of native coronary artery without angina pectoris; E78.5 Hyperlipidemia, unspecified; E66.9 Obesity, unspecified; Z68.31 Body mass index [BMI] 31.0-31.9, adult; K80.20 Calculus of gallbladder without cholecystitis without obstruction; R60.0 Localized edema; R31.0 Gross hematuria; I73.9 Peripheral vascular disease, unspecified; Z95.1 Presence of aortocoronary bypass graft; Z95.2 Presence of prosthetic heart valve; Z88.0 Allergy status to penicillin; Z82.49 Family history of ischemic heart disease and other diseases of the circulatory system; Z87.891 Personal history of nicotine dependence; Z95.828 Presence of other vascular implants and grafts; Z79.82 Long term (current) use of aspirin
CPT/HCPCS: J1644; J1940; J3370; J7040; Q9967